=== PATIENT | male | born 1975 | race Two or more races ===

== ENCOUNTER 2023-04-08 12:08 | Inpatient (IN) | payer MEDICAID ==
[~2023-04-08] VITALS: Ht 177.8 cm; Wt 86.6 kg
[2023-04-08 13:31] LABS: Basophils # (auto) 0 10 ^3/uL (0-0.2); Basophils % (auto) 0.3 % (0.0-2.0); Eosinophils # (auto) 0.1 10 ^3/uL (0-0.8); Eosinophils % (auto) 1.2 % (0.0-7.0); Hematocrit 46.7 % (41.0-53.0); Hemoglobin 16.1 g/dL (13.5-17.5); Lymphocytes # (auto) 1.3 10 ^3/uL (0.4-5.4); Lymphocytes % (auto) 19.4 % (10.0-50.0); Mean Corpuscular Hemoglobin 29.9 pg (28.0-32.0); Mean Corpuscular Hgb Conc. 34.5 g/dL (32.0-36.0); Mean Corpuscular Volume 86.9 fL (80.0-100.0); Monocytes # (auto) 0.4 10 ^3/uL (0-1.3); Monocytes % (auto) 6.5 % (0.0-12.0); Neutrophils # (auto) 4.9 10 ^3/uL (1.6-8.6); Neutrophils % (auto) 72.6 % (37.0-80.0); Nucleated Red Blood Cells % 0.2 %; Red Blood Cells 5.38 10^6/uL (4.5-5.90); Red Cell Distribution Width 13.1 % (11.8-14.3); White Blood Cell 6.7 10^3/uL (4.4-10.8)
[2023-04-08 13:56] LABS: Alanine Aminotransferase 24 U/L (7-40); Albumin 4.5 g/dL (3.2-4.8); Alkaline Phosphatase 58 U/L (46-116); Anion Gap 5.8 (5-15); Aspartate Aminotransferase 11 U/L (13-40); BUN/Creatinine Ratio 14.4 (10.0-20.0); Blood Urea Nitrogen 13 mg/dL (9-23); Calcium 9.3 mg/dL (8.5-10.1); Carbon Dioxide 29.2 mmol/L (20-30); Chloride 103 mmol/L (98-107); Glucose 90 mg/dL (74-106); Lipase 42 U/L (12-53); Magnesium 1.9 mg/dL (1.6-2.6); Potassium 4.4 mmol/L (3.5-5.1); Sodium 138 mmol/L (136-145)
[2023-04-08 13:57] LABS: Total Protein 7.7 g/dL (5.7-8.2)
[2023-04-08] MEDS ORDERED: PIPERACILLIN-TAZOB 3.375GM 100 ML IV ONE (14:00)
[2023-04-08] MEDS ORDERED: SODIUM CHLORIDE 0.9% 1,000 ML IV ONE (14:00)
[2023-04-08 14:03] LABS: Urine Bacteria NONE SEEN /hpf (None Seen); Urine Blood Negative /uL (Negative); Urine Clarity Clear (Clear); Urine Color Yellow (Yellow); Urine Mucus FEW (None Seen); Urine Protein, UAD Negative (Negative); Urine Specific Gravity 1.025 (1.001-1.035); Urine Urobilinogen Normal (Negative); Urine WBC 1 /hpf (0 - 3); Urine pH 5.5 (5.0-8.0)
[2023-04-08] MEDS ORDERED: PANTOPRAZOLE 40 MG/10 ML VIAL INJ IV ONE (15:30)
[2023-04-08] MEDS ORDERED: KETOROLAC TROMETH 30 MG/ML 1ML VIAL IV ONE (15:30)
[2023-04-08] MEDS ORDERED: ACETAMINOPHEN 325 MG TAB PO PRN (15:30)
[2023-04-08 16:03] VITALS: PULSE 61; RESP 17; O2SAT 95
[2023-04-08] MEDS: SODIUM CHLORIDE 0.9% 1,000 ML IV SCH (16:36)
[2023-04-08 16:42] LABS: INR 0.97 (0.9-1.15); Prothrombin Time 10.2 sec (9.3-11.8)
[2023-04-08] MEDS: PIPERACILLIN-TAZOB 3.375GM 100 ML IV SCH (18:09)
[2023-04-08 22:30] VITALS: PULSE 56; RESP 17; O2SAT 95
[2023-04-09] MEDS: PIPERACILLIN-TAZOB 3.375GM 100 ML IV SCH ×3 (01:05→17:08)
[2023-04-09] MEDS: SODIUM CHLORIDE 0.9% 1,000 ML IV SCH (03:36)
[2023-04-09 07:40] VITALS: PULSE 56; RESP 16; O2SAT 95
[2023-04-09 08:05] LABS: Basophils # (auto) 0 10 ^3/uL (0-0.2); Basophils % (auto) 0.5 % (0.0-2.0); Eosinophils # (auto) 0.1 10 ^3/uL (0-0.8); Eosinophils % (auto) 2.2 % (0.0-7.0); Hematocrit 44.5 % (41.0-53.0); Hemoglobin 14.8 g/dL (13.5-17.5); Lymphocytes # (auto) 1.2 10 ^3/uL (0.4-5.4); Lymphocytes % (auto) 23.7 % (10.0-50.0); Mean Corpuscular Hemoglobin 29.3 pg (28.0-32.0); Mean Corpuscular Hgb Conc. 33.3 g/dL (32.0-36.0); Mean Corpuscular Volume 88.1 fL (80.0-100.0); Monocytes # (auto) 0.4 10 ^3/uL (0-1.3); Monocytes % (auto) 7.6 % (0.0-12.0); Neutrophils # (auto) 3.3 10 ^3/uL (1.6-8.6); Nucleated Red Blood Cells % 0.2 %; Red Blood Cells 5.05 10^6/uL (4.5-5.90); Red Cell Distribution Width 13.2 % (11.8-14.3)
[2023-04-09 08:41] LABS: Alanine Aminotransferase 15 U/L (7-40); Albumin 3.7 g/dL (3.2-4.8); Alkaline Phosphatase 46 U/L (46-116); Anion Gap 6.9 (5-15); Aspartate Aminotransferase 10 U/L (13-40); Bilirubin, Total 1.3 mg/dL (0.2-1.0); Blood Urea Nitrogen 10 mg/dL (9-23); Calcium 8.9 mg/dL (8.5-10.1); Carbon Dioxide 24.1 mmol/L (20-30); Chloride 108 mmol/L (98-107); Glucose 87 mg/dL (74-106); Potassium 4.2 mmol/L (3.5-5.1); Sodium 139 mmol/L (136-145)
[2023-04-09 08:42] LABS: Total Protein 6.4 g/dL (5.7-8.2)
[2023-04-09] MEDS ORDERED: LIDOCAINE W/ EPINEPHRINE 2% INJ 20ML VIAL ONE (09:31)
[2023-04-09] MEDS ORDERED: BUPIVACAINE 0.25% INJ 50ML VIAL ONE (09:31)
[2023-04-09] MEDS ORDERED: fentaNYL CITRATE 100 MCG/2 ML VL ONE (09:40)
[2023-04-09] MEDS ORDERED: MIDAZOLAM HCL 2MG/2ML 2ml VIAL (1mg/ml) ONE (09:40)
[2023-04-09] MEDS ORDERED: MEPERIDINE HCL (25 MG/ML) 1ML VIAL ONE (09:41)
[2023-04-09] MEDS ORDERED: PROPOFOL 10 MG/ML 20 ML IV ONE (09:42)
[2023-04-09] MEDS ORDERED: DexAMETHasone SOD PHOS 10MG/1ML VIAL INJ ONE (09:42)
[2023-04-09] MEDS ORDERED: ePHEDrine SULFATE 50 MG/ML AMP IV PRN (10:15)
[2023-04-09] MEDS ORDERED: MORPHINE SULFATE 4 MG/ML SYR/VIAL IV PRN (10:15)
[2023-04-09] MEDS ORDERED: MIDAZOLAM HCL 2MG/2ML 2ml VIAL (1mg/ml) IV PRN (10:15)
[2023-04-09] MEDS ORDERED: ONDANSETRON HCL 4 MG/2 ML VIAL IV PRN (10:15)
[2023-04-09] MEDS ORDERED: LABETALOL HCL 5 MG/ML 4ML SYRINGE IV PRN (10:15)
[2023-04-09] MEDS ORDERED: SUGAMMADEX 200mg/2ml Vial (100MG/ML) IV ONE (10:48)
[2023-04-09 11:05] VITALS: O2SAT 99
[2023-04-09] MEDS: HYDROmorphone HCL 2 MG/ML VL/or syr IV PRN ×2 (11:26→11:41)
[2023-04-09] MEDS: D5W/SOD CHL 0.45%/KCL 20MEQ 1,000 ML IV SCH ×2 (11:30→19:29)
[2023-04-09 13:49] VITALS: BP 133/75; PULSE 71; RESP 16; RESP 18; TEMP 97.9; O2SAT 95; O2SAT 96
[2023-04-09] MEDS: PANTOPRAZOLE 40 MG/10 ML VIAL INJ IV SCH (15:21)
[2023-04-09] MEDS: MORPHINE SULFATE INJ 2 MG/ml SYRG IV PRN (15:21)
[2023-04-09 16:55] VITALS: BP 138/78; PULSE 68; RESP 14; TEMP 97.7; O2SAT 94
[2023-04-09] MEDS ORDERED: ONDANSETRON HCL 4 MG/2 ML VIAL IV ONE (17:24)
[2023-04-09] MEDS ORDERED: ROCURONIUM 10MG/ML 10ML VIAL IV ONE (17:24)
[2023-04-09 22:00] VITALS: BP 117/72; PULSE 76; RESP 20; TEMP 98; O2SAT 100
[2023-04-10] MEDS: MORPHINE SULFATE INJ 2 MG/ml SYRG IV PRN ×3 (01:03→15:41)
[2023-04-10] MEDS: D5W/SOD CHL 0.45%/KCL 20MEQ 1,000 ML IV SCH ×2 (03:40→10:47)
[2023-04-10 04:49] VITALS: BP 121/76; PULSE 77; RESP 20; TEMP 98.1; O2SAT 96
[2023-04-10 08:00] VITALS: BP 123/75; PULSE 76; RESP 16; TEMP 98; O2SAT 96
[2023-04-10] MEDS: PANTOPRAZOLE 40 MG/10 ML VIAL INJ IV SCH (09:06)
[2023-04-10 12:00] VITALS: BP 123/75; PULSE 68; RESP 16; TEMP 98.7; O2SAT 95
[2023-04-10] MEDS ORDERED: METR-344 PO (12:40)
[2023-04-10] MEDS ORDERED: TRAM50TA2 PO (12:40)
[2023-04-10] MEDS ORDERED: LEVO500T91 PO (12:40)
[2023-04-10] MEDS ORDERED: DOCU-94 PO (12:40)
[2023-04-10] MEDS: PIPERACILLIN-TAZOB 3.375GM 100 ML IV SCH (13:08)
[2023-04-10 16:00] VITALS: BP 122/81; PULSE 67; RESP 16; TEMP 97.8; O2SAT 95
[2023-04-10 18:49] VITALS: BP 133/72; PULSE 78; RESP 18; TEMP 98; O2SAT 96
== END 2023-04-10 17:25 | disposition home or self-care (01) | DRG 234 ==
LOC: ER 12:08 → OVERFLOW 15:23 → EAST 04-09 14:05
PROVIDERS: ADMIT Nurse Practitioner Family; ATTEND Internal Medicine
PROC: 0DTJ4ZZ Resection of Appendix, Percutaneous Endoscopic Approach (ICD-10-PCS; principal; 2023-04-09 09:55)
DX: K35.891 Other acute appendicitis without perforation, with gangrene (principal); Z83.3 Family history of diabetes mellitus
CPT/HCPCS: 36415; 74176; 80053; 81001; 83690; 83735; 85025; 85610; 85730; 86850; 86900; 86901; 87077; 87186; 87205; 93005; C9113; G0378; J1100; J1885; J2250; J2405; J2543; J2704; J3490

== ENCOUNTER 2023-04-23 08:41 | Emergency (ER) | payer MEDICAID ==
[~2023-04-23] VITALS: Ht 175.3 cm; Wt 83.7 kg
[~2023-04-23 08:41] MED LIST: DOCU-94 PO; LEVO500T91 PO; METR-344 PO; TRAM50TA2 PO
[2023-04-23 09:29] LABS: Basophils # (auto) 0 10 ^3/uL (0-0.2); Basophils % (auto) 0.8 % (0.0-2.0); Eosinophils # (auto) 0.2 10 ^3/uL (0-0.8); Eosinophils % (auto) 3.5 % (0.0-7.0); Hematocrit 48.9 % (41.0-53.0); Hemoglobin 16.5 g/dL (13.5-17.5); Lymphocytes # (auto) 1.4 10 ^3/uL (0.4-5.4); Lymphocytes % (auto) 29.1 % (10.0-50.0); Mean Corpuscular Hgb Conc. 33.6 g/dL (32.0-36.0); Mean Corpuscular Volume 86.3 fL (80.0-100.0); Monocytes # (auto) 0.4 10 ^3/uL (0-1.3); Monocytes % (auto) 7.5 % (0.0-12.0); Neutrophils # (auto) 2.9 10 ^3/uL (1.6-8.6); Neutrophils % (auto) 59.1 % (37.0-80.0); Nucleated Red Blood Cells % 0.2 %; Red Blood Cells 5.67 10^6/uL (4.5-5.90); Red Cell Distribution Width 13.3 % (11.8-14.3); White Blood Cell 4.8 10^3/uL (4.4-10.8)
[2023-04-23 09:36] LABS: Urine Bacteria NONE SEEN /hpf (None Seen); Urine Blood Negative /uL (Negative); Urine Clarity Clear (Clear); Urine Protein, UAD Negative (Negative); Urine Specific Gravity 1.024 (1.001-1.035); Urine Urobilinogen Normal (Negative); Urine WBC 1 /hpf (0 - 3)
[2023-04-23 09:37] LABS: Urine Color STRAW (Yellow)
[2023-04-23 09:47] LABS: Alanine Aminotransferase 68 U/L (7-40); Albumin 4.3 g/dL (3.2-4.8); Alkaline Phosphatase 54 U/L (46-116); Aspartate Aminotransferase 31 U/L (13-40); BUN/Creatinine Ratio 15.2 (10.0-20.0); Blood Urea Nitrogen 15 mg/dL (9-23); Calcium 9.4 mg/dL (8.5-10.1); Carbon Dioxide 30 mmol/L (20-30); Glucose 68 mg/dL (74-106)
[2023-04-23 09:48] LABS: Bilirubin, Total 0.6 mg/dL (0.2-1.0); Total Protein 7.2 g/dL (5.7-8.2)
[2023-04-23 10:34] LABS: Anion Gap 4 (5-15); Chloride 104 mmol/L (98-107); Potassium 4.5 mmol/L (3.5-5.1); Sodium 138 mmol/L (136-145)
[2023-04-23 13:57] VITALS: BP 124/83; PULSE 72; RESP 16; TEMP 97.9; O2SAT 95
== END 2023-04-23 16:42 | disposition home or self-care (01) ==
LOC: ER 08:41
DX: R10.31 Right lower quadrant pain (principal); Z79.899 Other long term (current) drug therapy
CPT/HCPCS: 36415; 74176; 80053; 81001; 83690; 84484; 85025

== ENCOUNTER 2023-06-03 08:15 | Emergency (ER) | payer MEDICAID ==
[~2023-06-03] VITALS: Ht 175.3 cm; Wt 85.2 kg
[2023-06-03 08:33] VITALS: BP 117/67; PULSE 66; RESP 18; TEMP 97.8; O2SAT 97
[2023-06-03] MEDS ORDERED: CYCL-611 PO (09:28)
[2023-06-03] MEDS ORDERED: HYDR-4902 PO (09:28)
[2023-06-03] MEDS ORDERED: HYDROcodone-ACET 5/325MG TAB PO ONE (09:30)
[2023-06-03] MEDS ORDERED: DexAMETHasone SOD PHOS 10MG/1ML VIAL INJ IM ONE (09:30)
[2023-06-03] MEDS ORDERED: KETOROLAC TROMETH 60MG/2ML VIAL IM ONE (09:30)
== END 2023-06-03 09:46 | disposition home or self-care (01) ==
LOC: ER 08:15
DX: G89.29 Other chronic pain (principal); M54.50 Low back pain, unspecified; M51.36 Other intervertebral disc degeneration, lumbar region; Z79.899 Other long term (current) drug therapy; Z79.2 Long term (current) use of antibiotics
CPT/HCPCS: 72131; 96372; 99285; J1100; J1885

== ENCOUNTER 2023-12-22 09:40 | Emergency (ER) | payer MEDICAID ==
[~2023-12-22] VITALS: Ht 175.3 cm; Wt 85.4 kg
[~2023-12-22 09:40] MED LIST changes: +CYCL-611 PO; +HYDR-4902 PO; +IBUP1TAB5 PO
[2023-12-22 10:25] LABS: Urine Bacteria None Seen /hpf (None Seen)
[2023-12-22 10:35] LABS: Basophils # (auto) 0 10 ^3/uL (0-0.2); Basophils % (auto) 0.5 % (0.0-2.0); Eosinophils # (auto) 0.1 10 ^3/uL (0-0.8); Eosinophils % (auto) 2.2 % (0.0-7.0); Hematocrit 47.4 % (41.0-53.0); Hemoglobin 16.1 g/dL (13.5-17.5); Lymphocytes # (auto) 1.4 10 ^3/uL (0.4-5.4); Lymphocytes % (auto) 31.3 % (10.0-50.0); Mean Corpuscular Hemoglobin 29.7 pg (28.0-32.0); Mean Corpuscular Hgb Conc. 33.9 g/dL (32.0-36.0); Mean Corpuscular Volume 87.5 fL (80.0-100.0); Monocytes # (auto) 0.4 10 ^3/uL (0-1.3); Monocytes % (auto) 9.1 % (0.0-12.0); Neutrophils # (auto) 2.5 10 ^3/uL (1.6-8.6); Neutrophils % (auto) 56.9 % (37.0-80.0); Nucleated Red Blood Cells % 0.3 %; Red Blood Cells 5.42 10^6/uL (4.5-5.90); Red Cell Distribution Width 13.4 % (11.8-14.3); White Blood Cell 4.5 10^3/uL (4.4-10.8)
[2023-12-22 10:42] LABS: Chloride 107 mmol/L (98-107); Potassium 4.3 mmol/L (3.5-5.1); Sodium 138 mmol/L (136-145)
[2023-12-22 10:42] LABS: Urine Amorphous Crystal FEW /hpf (None Seen); Urine Blood Negative /uL (Negative); Urine Clarity Clear (Clear); Urine Color Yellow (Yellow); Urine Mucus FEW (None Seen); Urine Protein, UAD Negative (Negative); Urine Specific Gravity 1.033 (1.001-1.035); Urine Urobilinogen Normal (Negative); Urine WBC 1 /hpf (0 - 3); Urine pH 5.5 (5.0-9.0)
[2023-12-22 10:43] LABS: Anion Gap 1 (5-15); Calcium 9.8 mg/dL (8.5-10.1); Carbon Dioxide 30 mmol/L (20-30)
[2023-12-22 10:48] LABS: BUN/Creatinine Ratio 18.1 (10.0-20.0); Blood Urea Nitrogen 19 mg/dL (9-23); Glucose 70 mg/dL (74-106)
[2023-12-22 11:20] VITALS: BP 136/79; PULSE 61; RESP 18; TEMP 98.4; O2SAT 97
== END 2023-12-22 11:28 | disposition home or self-care (01) ==
LOC: ER 09:40
DX: R10.32 Left lower quadrant pain (principal)
CPT/HCPCS: 36415; 74176; 80048; 81001; 85025

== ENCOUNTER 2024-06-11 03:14 | Inpatient (IN) | payer MEDICAID ==
[~2024-06-11] VITALS: Ht 175.3 cm; Wt 81.5 kg
--- NOTE | 2024-06-11 03:49 | ED.PDOC ---
History of Present Illness HPI Comments 48 y/o M, with a Hx of appendectomy and EtOH use, presents with c/o intermittent and non-radiating, left-sided chest pain since 1900, yesterday. Patient is a [place]ian speaker and reports onset of chest pain, initially, while at work that he describes it being "heavy" and "pressure-like" in quality. Patient comments on pain subsiding, temporally, when he slept on his right-side after returning form work and it coming back and awakening him, this morning. Patient comments on having similar pain in the past that were not as severe then and occurring whenever bending over. Patient endorses on no further relevant or pertinent past medical, surgical, or family Hx in addition to recent stress, injuries, sick contact, travel, spoiled food intake, or substance use/exposure. Patient denies having any shortness of breath, palpitations, nausea, vomiting, fever, chills, or other associated symptoms or modifiers at this time. Chief Complaint: Chest Pain Time Seen by MD: 03:30 Primary Care Provider: DENIES Reviewed Notes: Nurses Notes, Medications, Allergies Allergies: Coded Allergies: NO KNOWN ALLERGIES (Unverified , 04/08/23) Home Meds Active Scripts Ibuprofen Micronized (Ibuprofen) 600 Mg Tab, 600 MG PO TIDPRN PRN for 14 Days, #42 TAB 0 Refills Prov:LUCY FIELD APPLICATION INTERNSHIP 09/09/23 Cyclobenzaprine HCl (Cyclobenzaprine Hydrochlo) 10 Mg Tab, 1 TAB PO Q8HR, #15 TAB as needed for muscle spasm do not take with norco Prov:ERNESTINA FERNANDEZ APPLICATION INTERNSHIP 06/03/23 Hydrocodone-Acetaminophen (Hydrocodone Bitartrate/AC 5-325 mg) 1 Tab Tab, 1 TAB PO Q6HR, #10 TAB as needed for pain do not take with flexeril Prov:ERNESTINA FERNANDEZ [employer] INTERNSHIP 06/03/23 Tramadol Hcl (Tramadol Hcl) 50 Mg Tab, 50 MG PO TIDP PRN for 5 Days, #15 TAB Prov:DIANA PELAEZ MD 04/10/23 Docusate Sodium (Colace) 100 Mg Cap, 1 CAP PO BID PRN for 15 Days, #40 CAP Prov:DIANA PELAEZ MD 04/10/23 Metronidazole (Flagyl) 500 Mg Tab, 500 MG PO TID for 7 Days, #21 TAB Prov:DIANA PELAEZ MD 04/10/23 Levofloxacin Hemihydrate (LEVAQUIN 500 MG) 500 Mg Tab, 500 MG PO DAILY for 7 Days, #7 TAB Prov:DIANA PELAEZ MD 04/10/23 Information Source: Patient Mode of Arrival: Ambulatory Severity: Moderate Timing: Hours Duration: Since onset Prehospital treatment: None Past Medical History PAST MEDICAL HISTORY: Denies Surgical History: Appendectomy Family History Family History: Family hx of DM, Family hx of Cancer Social History Smoker: Non-Smoker Alcohol: Occasionally Drugs: Denies Drug Use Lives In: Home Constitutional: denies: chills, diaphoresis, fatigue, fever, malaise, sweats, weakness, others EENTM: denies: blurred vision, double vision, ear bleeding, ear discharge, ear drainage, ear pain, ear ringing, eye pain, eye redness, hearing loss, mouth pain, mouth swelling, nasal discharge, nose bleeding, nose congestion, nose pain, photophobia, tearing, throat pain, throat swelling, voice changes, others Respiratory: denies: cough, hemoptysis, orthopnea, SOB at rest, shortness of breath, SOB with excertion, stridor, wheezing, others Cardiovascular: reports: chest pain; denies: dizzy spells, diaphoresis, Dyspnea on exertion, edema, irregular heart beat, left arm pain, lightheadedness, palpitations, PND, syncope, others Gastrointestinal: denies: abdomen distended, abdominal pain, blood streaked bowels, constipated, diarrhea, dysphagia, difficulty swallowing, hematemesis, melena, nausea, poor appetite, poor fluid intake, rectal bleeding, rectal pain, vomiting, others Genitourinary: denies: burning, dysuria, flank pain, frequency, hematuria, incontinence, penile discharge, penile sore, pain, testicle pain, testicle swelling, urgency, others Neurological: denies: dizziness, fainting, headache, left sided numbness, left sided weakness, numbness, paresthesia, pre-existing deficit, right sided numbness, right sided weakness, seizure, speech problems, tingling, tremors, weakness, others Musculoskeletal: denies: back pain, gout, joint pain, joint swelling, muscle pain, muscle stiffness, neck pain, others Integumetry: denies: bruises, change in color, change in hair/nails, dryness, laceration, lesions, lumps, rash, wounds, others Allergic/Immunocompromised: denies: Difficulty Healing, Frequent Infections, Hives, Itching, others Hematologic/Lymphatic: denies: anemia, blood clots, easy bleeding, easy bruising, swollen glands, others Endocrine: denies: excessive hunger, excessive sweating, excessive thirst, excessive urination, flushing, intolerance to cold, intolerance to heat, unexplained weight gain, unexplained weight loss, others Psychiatric: denies: anxiety, bipolar disorder, depression, hopeless, panic disorder, schizophrenia, sleepless, suicidal, others All Other Systems: Reviewed and Negative Physical Exam General Appearance: No Apparent Distress, Normal HEENT: Normal ENT Inspection, Pharynx Normal, TMs Normal Neck: Full Range of Motion, Non-Tender, Normal, Normal Inspection Respiratory: Chest Non-Tender, Lungs Clear, No Accessory Muscle Use, No Respiratory Distress, Normal Breath Sounds Cardiovascular: No Edema, No JVD, No Murmur, No Gallop, Normal Peripheral Pulses, Regular Rate/Rhythm Breast Exam: Deferred Gastrointestinal: No Organomegaly, Non Tender, No Pulsatile Mass, Normal Bowel Sounds, Soft Genitalia: Deferred Pelvic: Deferred Rectal: Deferred Extremities: No calf tenderness, Normal capillary refill, Normal inspection, Normal range of motion, Non-tender, No pedal edema Musculoskeletal : Apperance: Normal Neurologic: Alert, site auditor II-XII nml as Tested, No Motor Deficits, Normal Affect, Normal Mood, No Sensory Deficits Cerebellar Function: Normal Reflexes: Normal Skin: Dry, Normal Color, Warm Lymphatic: No Adenopathy Was a procedure done? Was a procedure done?: No EKG EKG : Kunkle: Normal Cardiac Rhythm: NSR Block: None Hypertrophy: None ST: Normal Differential Dx Considerations may include: OK, ACS, PE, angina, costochondritis, musculoskeletal pain, gastritis, gastroenteritis, anxiety X-Ray, Labs, Meds, VS Vital Signs Date Time Temp Pulse Resp B/P (MAP) Pulse Ox O2 Delivery O2 Flow Rate FiO2 06/11/24 04:20 59 06/11/24 04:05 61 16 97 Room Air* 0 21 06/11/24 04:05 98.3 61 16 111/76 (88) 97 98.3 06/11/24 03:21 98.2 63 17 155/98 (117) 97 06/11/24 03:20 61 Lab Test 06/11/24 04:30 06/11/24 03:22 Range/Units Troponin I High Sensitivity 3 L 3 L </=54 ng/L White Blood Count 4.8 4.4-10.8 10^3/uL Red Blood Count 5.24 4.5-5.90 10^6/uL Hemoglobin 15.9 13.5-17.5 g/dL Hematocrit 47.3 41.0-53.0 % Mean Corpuscular Volume 90.2 80.0-100.0 fL Mean Corpuscular Hemoglobin 30.3 28.0-32.0 pg Mean Corpuscular Hemoglobin Concent 33.6 32.0-36.0 g/dL Red Cell Distribution Width 13.8 11.8-14.3 % Platelet Count 244 140-450 10^3/uL Mean Platelet Volume 6.8 L 6.9-10.8 fL Neutrophils (%) (Auto) 55.4 37.0-80.0 % Lymphocytes (%) (Auto) 32.5 10.0-50.0 % Monocytes (%) (Auto) 9.0 0.0-12.0 % Eosinophils (%) (Auto) 2.2 0.0-7.0 % Basophils (%) (Auto) 0.9 0.0-2.0 % Neutrophils # (Auto) 2.7 1.6-8.6 10 ^3/uL Lymphocytes # (Auto) 1.6 0.4-5.4 10 ^3/uL Monocytes # (Auto) 0.4 0-1.3 10 ^3/uL Eosinophils # (Auto) 0.1 0-0.8 10 ^3/uL Basophils # (Auto) 0 0-0.2 10 ^3/uL Nucleated Red Blood Cells 0.1 % Sodium Level 138 136-145 mmol/L Potassium Level 5.3 H 3.5-5.1 mmol/L Chloride Level 105 98-107 mmol/L Carbon Dioxide Level 29 20-31 mmol/L Anion Gap 4 L 5-15 Blood Urea Nitrogen 19 9-23 mg/dL Creatinine 1.04 0.700-1.30 mg/dL Glomerular Filtration Rate Calc 89 >90 mL/min BUN/Creatinine Ratio 18.3 10.0-20.0 Serum Glucose 107 H 74-106 mg/dL Calcium Level 9.9 8.7-10.4 mg/dL Current Medications Medications (Trade) Dose Ordered Sig/Christofer Route Start Time Stop Time Status Last Admin Famotidine (Pepcid Tablet) 20 mg ONCE ONCE PO 06/11/24 03:45 06/11/24 03:46 DC 06/11/24 04:10 Al Hydrox/Mg Hydrox/Simethicone (Maalox Plus) 15 ml ONCE ONCE PO 06/11/24 03:45 06/11/24 03:46 DC 06/11/24 04:09 [place] [id number] Ph: [phone] DIAGNOSTIC IMAGING Diagnostic Imaging Report : [id number] Signed PATIENT: ROGELIO MACIEL ACCT: [id number] UNIT: [id number] : 1975 LOC: ER ROOM / BED: / AGE / SEX: 48 / M ADM STATUS: REG ER SERVICE 033 ORDERING PHYSICIAN: GELA CARDONA MD PROCEDURE(s): CXR2 - CHEST TWO VIEWS ROUTINE REASON: chest pain ORDER NUMBER(s): [id number], ACCESSION NUMBER(s): [id number] CHEST TWO VIEWS ROUTINE CLINICAL HISTORY: chest pain COMPARISON: None TECHNIQUE: Frontal and lateral view of the chest was obtained FINDINGS: Lines and Tubes: None Lungs: There is pulmonary congestion. Pleura: No effusion. No pneumothorax. Cardiomediastinal contours: Unremarkable Bones: No acute osseous abnormality. IMPRESSION: 1. Pulmonary congestion. ATED BY: SHAYNA MONROE MD DICTATED DATE/TIME: 06/11/24452 SIGNED BY: SHAYNA MONROE MD SIGNED DATE/TIME: 06/11/24452 CC: Time of 1ST Reevaluation: 04:00 Reevaluation 1ST: Unchanged Patient Education/Counseling: Diagnosis, Treatment Family Education/Counseling: No Family Present Departure 1 Departure Time of Disposition: 05:47 (Patient presented with chest pain that was concerning for possible STEMI, ACS, PE, Pneumonia, Muscle Strain, COPD, Dissection. Data: 1. I ordered and reviewed the result of at least 3 labs including a CBC, BMP, and Troponin. 2. I independently interpreted the following tests: EKG which shows sinus arrhythmia and Chest X-ray which shows vascular congestion.Risk:This patient has a high risk of morbidity due to further diagnostic testing or treatment and may suffer from an acute cardiac or respiratory disorder. Workup reveals concern for ACS and vascular congestion and patient should be admitted for further workup and possible expert consultation. ) Impression: Primary Impression: Acute chest pain Additional Impression: Pulmonary vascular congestion Disposition: ADMITTED INPATIENT Admit to: Med Surg Condition: Serious Critical Care Note Critical Care Time?: Yes Critical care comment: Active chest pain Authorized and Performed by: Gela Cardona MD Total critical care time: Approximately 44 minutes Due to a high probability of clinically significant, life threatening deterioration, the patient required my highest level of preparedness to intervene emergently and I personally spent this critical care time directly and personally managing the patient. This critical care time included obtaining a history; examining the patient; pulse oximetry; ordering and review of studies; arranging urgent treatment with development of a management plan; evaluation of patient's response to treatment; frequent reassessment; and, discussions with other providers. This critical care time was performed to assess and manage the high probability of imminent, life-threatening deterioration that could result in multi-organ failure. It was exclusive of separately billable procedures and treating other patients and teaching time. Please see my other sections and the rest of the note for further information on patient assessment and treatment. Stability Stability form required: No Heart Score Heart Score: Heart Score Response (Comments) Value History Moderate Suspicious 1 EKG Repolarization Disturb 1 Age 45-64 1 Risk Factors No known risk factors 0 Troponin Normal limit 0 Total 3 I personally scribed for GELA CARDONA MD ([email or web address]) on 06/11/24 at 03:49. Electronically submitted by Lucien Farris ([email or web address]). I personally scribed for GELA CARDONA MD ([email or web address]) on 06/11/24 at 05:38. Electronically submitted by Lucien Farris ([email or web address]). GELA CARDONA MD Jun 11, 2024 03:49
[2024-06-11 03:54] LABS: Basophils # (auto) 0 10 ^3/uL (0-0.2); Basophils % (auto) 0.9 % (0.0-2.0); Eosinophils # (auto) 0.1 10 ^3/uL (0-0.8); Eosinophils % (auto) 2.2 % (0.0-7.0); Hematocrit 47.3 % (41.0-53.0); Hemoglobin 15.9 g/dL (13.5-17.5); Lymphocytes # (auto) 1.6 10 ^3/uL (0.4-5.4); Lymphocytes % (auto) 32.5 % (10.0-50.0); Mean Corpuscular Hemoglobin 30.3 pg (28.0-32.0); Mean Corpuscular Hgb Conc. 33.6 g/dL (32.0-36.0); Mean Corpuscular Volume 90.2 fL (80.0-100.0); Monocytes # (auto) 0.4 10 ^3/uL (0-1.3); Neutrophils # (auto) 2.7 10 ^3/uL (1.6-8.6); Neutrophils % (auto) 55.4 % (37.0-80.0); Nucleated Red Blood Cells % 0.1 %; Platelet Count (auto) 244 10^3/uL (140-450); Red Blood Cells 5.24 10^6/uL (4.5-5.90); Red Cell Distribution Width 13.8 % (11.8-14.3); White Blood Cell 4.8 10^3/uL (4.4-10.8)
[2024-06-11 03:56] LABS: Chloride 105 mmol/L (98-107); Potassium 5.3 mmol/L (3.5-5.1); Sodium 138 mmol/L (136-145)
[2024-06-11 03:57] LABS: Anion Gap 4 (5-15); Calcium 9.9 mg/dL (8.7-10.4); Carbon Dioxide 29 mmol/L (20-31)
[2024-06-11 04:02] LABS: BUN/Creatinine Ratio 18.3 (10.0-20.0); Blood Urea Nitrogen 19 mg/dL (9-23); Glucose 107 mg/dL (74-106)
[2024-06-11 04:05] VITALS: PULSE 61; RESP 16; O2SAT 97
[2024-06-11] MEDS: MAALOX PLUS or MAALOX 30 ML PO ONE (04:09)
[2024-06-11] MEDS: FAMOTIDINE 20 MG TAB PO ONE (04:10)
--- NOTE | 2024-06-11 04:56 | DVH ---
XY CHEST TWO VIEWS ROUTINE CLINICAL HISTORY: chest pain COMPARISON: None TECHNIQUE: Frontal and lateral view of the chest was obtained FINDINGS: Lines and Tubes: None Lungs: There is pulmonary congestion. Pleura: No effusion. No pneumothorax. Cardiomediastinal contours: Unremarkable Bones: No acute osseous abnormality. IMPRESSION: 1. Pulmonary congestion.
--- NOTE | 2024-06-11 06:13 | ECG ---
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
--- NOTE | 2024-06-11 06:14 | ECG ---
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
--- NOTE | 2024-06-11 06:21 | ECG ---
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
[2024-06-11 07:30] VITALS: PULSE 57; RESP 57; O2SAT 97
[2024-06-11] MEDS ORDERED: NITROGLYCERIN 0.4 MG SL TAB SL PRN (08:30)
[2024-06-11] MEDS ORDERED: HYDROcodone-ACET 5/325MG TAB PO PRN (08:30)
[2024-06-11] MEDS ORDERED: MORPHINE SULFATE INJ 2 MG/ml SYRG IV PRN (08:30)
[2024-06-11] MEDS ORDERED: ONDANSETRON HCL 4 MG/2 ML VIAL IV PRN (08:30)
[2024-06-11] MEDS ORDERED: ACETAMINOPHEN 325 MG TAB PO PRN (08:30)
--- NOTE | 2024-06-11 09:58 | DVHINCON2 ---
Date Seen: Jun 11, 2024 Referring Physician URIEL Lowery Reason for Consultation Chest pain History of Present Illness This is a [place]-speaking mostly 48-year-old male who presented to the emergency room with a chief complaint of chest pain since 1900 yesterday. Describes his chest pain as left-sided, intermittent, squeezing like, unprovoked, nonradiating, and associated with PND. Given worsening of symptoms he presented to the emergency room for further evaluation. He underwent multiple 12 lead electrocardiogram revealing a sinus bradycardia rhythm with nonprogressive ST depression to lead III. Serial troponin levels are negative. Denies palpitations, diaphoresis, or syncopal events. 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 Denie s any chest wall trauma. Only reports a medical history of borderline dyslipidemia managed by diet and exercise. Past Medical History Past medical history reviewed. No other significant than mentioned above. Past Surgical History Appendectomy Family History: Diabetes mellitus G8 FATHER Hypertension G8 FATHER Family History Family history reviewed. Father with hypertension. Social History Denies the use of illicit drugs, alcohol, or tobacco use. Reports a history of cannabinoid and alcohol use. Allergies: Coded Allergies: NO KNOWN ALLERGIES (Unverified , 04/08/23) Home Meds Active Scripts Ibuprofen Micronized (Ibuprofen) 600 Mg Tab, 600 MG PO TIDPRN PRN for 14 Days, #42 TAB 0 Refills Prov:LUCY FIELD MANUFACTURING MACHINE OPERATOR 09/09/23 Cyclobenzaprine HCl (Cyclobenzaprine Hydrochlo) 10 Mg Tab, 1 TAB PO Q8HR, #15 TAB as needed for muscle spasm do not take with norco Prov:ERNESTINA FERNANDEZ MANUFACTURING MACHINE OPERATOR 06/03/23 Hydrocodone-Acetaminophen (Hydrocodone Bitartrate/AC 5-325 mg) 1 Tab Tab, 1 TAB PO Q6HR, #10 TAB as needed for pain do not take with flexeril Prov:ERNESTINA FERNANDEZ MANUFACTURING MACHINE OPERATOR 06/03/23 Tramadol Hcl (Tramadol Hcl) 50 Mg Tab, 50 MG PO TIDP PRN for 5 Days, #15 TAB Prov:DIANA PELAEZ MD 04/10/23 Docusate Sodium (Colace) 100 Mg Cap, 1 CAP PO BID PRN for 15 Days, #40 CAP Prov:DIANA PELAEZ MD 04/10/23 Metronidazole (Flagyl) 500 Mg Tab, 500 MG PO TID for 7 Days, #21 TAB Prov:DIANA PELAEZ MD 04/10/23 Levofloxacin Hemihydrate (LEVAQUIN 500 MG) 500 Mg Tab, 500 MG PO DAILY for 7 Days, #7 TAB Prov:DIANA PELAEZ MD 04/10/23 Home Meds Denies any home medications. Current Medications Current Medications Medications (Trade) Dose Ordered Sig/Christofer Route PRN Reason Start Time Stop Time Status Last Admin Acetaminophen (Tylenol Tablet) 650 mg Q6HP PRN PO PAIN SCALE 1-3 OR TEMP>100.4 06/11/24 08:30 Acetaminophen/ Hydrocodone Bitart ([place] 5/325MG Tab) 1 tab Q4HP PRN PO MODERATE PAIN (4-6 PAIN SCALE) 06/11/24 08:30 Ondansetron HCl (Zofran) 4 mg Q4HP PRN IV NAUSEA / VOMITING 06/11/24 08:30 Nitroglycerin (Ntrostat Sublingual) 0.4 mg Q5MINP PRN SL FOR CHEST PAIN 06/11/24 08:30 Morphine Sulfate 2 mg Q30M PRN IV FOR CHEST PAIN 06/11/24 08:30 Review of Systems Constitutional: No symptom reported Ears, Nose, & Throat: No symptom reported Eyes: No symptom reported Neurological: No symptoms reported Pulmonary/Respiratory: PND Cardiovascular: Chest pain Gastrointestinal: No symptom reported Genitourinary: No symptom reported Musculoskeletal: No symptom reported Skin: No symptom reported Psychiatric: No symptom reported Endocrine: No symptom reported Hemotologic/Lymphatic: No symptom reported Vital Signs Vital Signs Date Time Temp Pulse Resp B/P (MAP) Pulse Ox O2 Delivery O2 Flow Rate FiO2 06/11/24 08:00 67 06/11/24 07:30 57 97 Room Air* 0 21 06/11/24 07:30 98.2 105/73 (84) 98.2 Physical Exam General Appearance: Cooperative. Well developed. Well nourished. In no acute distress Head Exam: Normal inspection Neck Exam: Normal inspection. Non-tender. Normal alignment Pulmonary/Respiratory: Chest non-tender. Diminished bilateral breath sounds Cardiovascular/Chest: Regular rate and rhythm. S1, S2. Sinus bradycardia with ST segment depression to single lead III. No murmurs. No JVD. Peripheral Pulses: 2+ Radial (R). 2+ Radial (L). 2+ Pedal (R). 2+ Pedal (L) Abdominal Exam: Normal bowel sounds. Soft. Nontender. No hepatospenomegaly. No masses Ankle Exam: Negative ankle edema Lower extremities: Negative lower extremity edema Neuro/Mental Status: A&O x4. Coherent Thoughts/Psych: Normal thought pattern. Appropriate mood and affect. Good judgement and insight Appearance: In no acute distress Skin Exam: Normal inspection. Normal color. Warm. Dry Labs/Diagnostic Data Labs Test 06/11/24 09:07 06/11/24 04:30 06/11/24 03:22 Range/Units Troponin I High Sensitivity 3 L </=54 ng/L White Blood Count 4.8 4.4-10.8 10^3/uL Red Blood Count 5.24 4.5-5.90 10^6/uL Hemoglobin 15.9 13.5-17.5 g/dL Hematocrit 47.3 41.0-53.0 % Mean Corpuscular Volume 90.2 80.0-100.0 fL Mean Corpuscular Hemoglobin 30.3 28.0-32.0 pg Mean Corpuscular Hemoglobin Concent 33.6 32.0-36.0 g/dL Red Cell Distribution Width 13.8 11.8-14.3 % Platelet Count 244 140-450 10^3/uL Mean Platelet Volume 6.8 L 6.9-10.8 fL Neutrophils (%) (Auto) 55.4 37.0-80.0 % Lymphocytes (%) (Auto) 32.5 10.0-50.0 % Monocytes (%) (Auto) 9.0 0.0-12.0 % Eosinophils (%) (Auto) 2.2 0.0-7.0 % Basophils (%) (Auto) 0.9 0.0-2.0 % Neutrophils # (Auto) 2.7 1.6-8.6 10 ^3/uL Lymphocytes # (Auto) 1.6 0.4-5.4 10 ^3/uL Monocytes # (Auto) 0.4 0-1.3 10 ^3/uL Eosinophils # (Auto) 0.1 0-0.8 10 ^3/uL Basophils # (Auto) 0 0-0.2 10 ^3/uL Nucleated Red Blood Cells 0.1 % Sodium Level 138 136-145 mmol/L Chloride Level 105 98-107 mmol/L Carbon Dioxide Level 29 20-31 mmol/L Anion Gap 4 L 5-15 Blood Urea Nitrogen 19 9-23 mg/dL Creatinine 1.04 0.700-1.30 mg/dL Glomerular Filtration Rate Calc 89 >90 mL/min BUN/Creatinine Ratio 18.3 10.0-20.0 Serum Glucose 107 H 74-106 mg/dL Calcium Level 9.9 8.7-10.4 mg/dL Assessment Chest pain rule out coronary artery disease Rule out structural heart disease Sinus bradycardia Borderline dyslipidemia Acute hyperkalemia Plan/Recommendation (Dr. Shipley) The patient presents with chest pain and associated pulmonary vascular congestion. We will continue further cardiac evaluation with a transthoracic echocardiogram to rule out structural heart disease as well as a treadmill stress test to rule out coronary ischemia. Initiate preload reduction. BNP lev el pending at this time. Monitor ECG changes and notify. Thank you for allowing us to participate in this patient's care. Please call if you have any questions or concerns. This medical document was created using an electronic medical record system with voice recognition software and computerized dictation system. Although this document has been carefully reviewed, there might still be some phonetic and typographical errors. Occasional wrong-word or ``sound-alike substitutions may have occurred due to the inherent limitations of voice recognition software. These areas are purely typographical due to imperfections of the software programs and do not reflect any compromise in the patient's medical care. Please read the chart carefully and recognize, using context, where these substitutions have occurred. Plan discussed with: Patient, Other Date of Service: Jun 11, 2024 Billing Provider: HANNA SHIPLEY MD Cardiology Common Codes: [id number] INP/OBS CARE (High) DAWNCOLLEEN JO [facility] Jun 11, 2024 09:58
[2024-06-11 10:02] LABS: Urine Bacteria None Seen /hpf (None Seen)
[2024-06-11 10:04] LABS: Potassium 4.2 mmol/L (3.5-5.1)
--- NOTE | 2024-06-11 10:07 | DVHHP2 ---
History of Present Illness Reason for Visit: CHEST PAIN History of Present Illness 47-year-old male, presented to the ED with complaint of intermittent and nonradiating left-sided chest pain since yesterday at 7:00 p.m. 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 Patient states the pain subsided temporarily when he slept on his right side after returning from work, and upon waking he felt the pain come back. Patient has had similar pain in the past though not as severe and happening when he bends over. Patient does not endorse any cardiac history. Patient's chest x-ray was noted to show pulmonary congestion. Patient's potassium is 5.3. Serial troponins were negative. Cardiology consult placed. Waiting on repeat labs. Patient denies headache, dizziness, diaphoresis, shortness of breath, abdominal pain, no nausea, vomiting, fever, or chills endorsed by the patient. Patient was admitted for further evaluation medical management. Past Medical History Patient denies Past Surgical History Appendectomy Family History Reviewed noncontributory to the management of this case Smoke: No ALCOHOL: none Drugs: None Lives: with Family Review of Systems Constitutional: No: Fever, Chills, Sweats, Weakness, Malaise, Other Eyes: No: Pain, Vision change, Conjunctivae inflammation, Eyelid inflammation, Other, Redness ENT: No: Ear pain, Ear discharge, Nose pain, Nose discharge, Nose congestion, Mouth pain, Mouth swelling, Throat pain, Throat swelling, Other Respiratory: No: Cough, Dry, Shortness of breath, SOB with excertion, Wheezing, Hemoptysis, Pleuritic Pain, Sputum, Wheezing, Other Cardiovascular: Chest Pain (Described as heaviness); No: Palpitations, Orthopnea, Paroxysmal Noc. Dyspnea, Edema, Lt Headedness, Other Gastrointestinal: No: Nausea, Vomiting, Abdominal Pain, Diarrhea, Constipation, Melena, Hematochezia, Other Genitourinary: No Dysuria, No Frequency, No Incontinence, No Hematuria, No Retention, No Other Musculoskeletal: No: other, neck pain, shoulder pain, arm pain, back pain, hand pain, leg pain, foot pain Skin: No: Rash, Lesions, Jaundice, Bruising, Other Neurological: No: Weakness, Numbness, Incoordination, Change in speech, Confusion, Seizures, Other Allergies: Coded Allergies: NO KNOWN ALLERGIES (Unverified , 04/08/23) Medications Current Medications Medications Dose Ordered Sig/Christofre Route Start Time Stop Time Status Last Admin Dose Admin Acetaminophen 650 mg Q6HP PRN PO 06/11/24 08:30 Acetaminophen/ Hydrocodone Bitart 1 tab Q4HP PRN PO 06/11/24 08:30 Ondansetron HCl 4 mg Q4HP PRN IV 06/11/24 08:30 Nitroglycerin 0.4 mg Q5MINP PRN SL 06/11/24 08:30 Morphine Sulfate 2 mg Q30M PRN IV 06/11/24 08:30 Exam Vital Signs Vital Signs Date Time Temp Pulse Resp B/P (MAP) Pulse Ox O2 Delivery O2 Flow Rate FiO2 06/11/24 08:00 67 06/11/24 07:30 57 97 Room Air* 0 21 06/11/24 07:30 98.2 105/73 (84) 98.2 General Appearance: Alert, Oriented X3, Cooperative, No acute distress HEENT: Atraumatic, PERRLA, EOMI, Mucous membr. moist/pink Respiratory: Clear to auscultation, Normal air movement Cardiovascular: Regular rate, Normal S1, Normal S2, No murmurs Abdominal: Normal bowel sounds, Soft, No tenderness, No hepatospenomegaly, No masses Extremities: No clubbing, No cyanosis, No edema, Normal pulses, No tenderness/swelling Skin: No rashes, No breakdown, No significant lesion Neuro: Normal gait, Normal speech, Strength at 5/5 X4 ext, Normal tone, Sensation intact, Cranial nerves 3-12 NL, Reflexes 2+ Psych/Mental Status: Mental status NL, Mood NL Labs/Xrays Labs, imaging, diagnostic tests and ED notes reviewed Labs Test 06/11/24 04:30 06/11/24 03:22 Range/Units Troponin I High Sensitivity 3 L </=54 ng/L White Blood Count 4.8 4.4-10.8 10^3/uL Red Blood Count 5.24 4.5-5.90 10^6/uL Hemoglobin 15.9 13.5-17.5 g/dL Hematocrit 47.3 41.0-53.0 % Mean Corpuscular Volume 90.2 80.0-100.0 fL Mean Corpuscular Hemoglobin 30.3 28.0-32.0 pg Mean Corpuscular Hemoglobin Concent 33.6 32.0-36.0 g/dL Red Cell Distribution Width 13.8 11.8-14.3 % Platelet Count 244 140-450 10^3/uL Mean Platelet Volume 6.8 L 6.9-10.8 fL Neutrophils (%) (Auto) 55.4 37.0-80.0 % Lymphocytes (%) (Auto) 32.5 10.0-50.0 % Monocytes (%) (Auto) 9.0 0.0-12.0 % Eosinophils (%) (Auto) 2.2 0.0-7.0 % Basophils (%) (Auto) 0.9 0.0-2.0 % Neutrophils # (Auto) 2.7 1.6-8.6 10 ^3/uL Lymphocytes # (Auto) 1.6 0.4-5.4 10 ^3/uL Monocytes # (Auto) 0.4 0-1.3 10 ^3/uL Eosinophils # (Auto) 0.1 0-0.8 10 ^3/uL Basophils # (Auto) 0 0-0.2 10 ^3/uL Nucleated Red Blood Cells 0.1 % Sodium Level 138 136-145 mmol/L Potassium Level 5.3 H 3.5-5.1 mmol/L Chloride Level 105 98-107 mmol/L Carbon Dioxide Level 29 20-31 mmol/L Anion Gap 4 L 5-15 Blood Urea Nitrogen 19 9-23 mg/dL Creatinine 1.04 0.700-1.30 mg/dL Glomerular Filtration Rate Calc 89 >90 mL/min BUN/Creatinine Ratio 18.3 10.0-20.0 Serum Glucose 107 H 74-106 mg/dL Calcium Level 9.9 8.7-10.4 mg/dL Assessment/Plan Assessment/Plan Chest pain, rule out ACS Admit to telemetry ACS protocol Cardiology consult Reviewed serial troponin unremarkable EKG sinus Zana some ST depression in lead 3 O2 p.r.n. 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 08:26 Up Ad Tresa GEORGINA 06/11/24 In Process 08:26 Acetaminophen Tablet PHA 06/11/24 In Process (Tylenol Tablet) 08:30 Notify Md Of Changes [facility] 06/11/24 In Process From Base 08:26 Advance Directive [facility] 06/11/24 In Process 08:26 Basic Metabolic Panel LAB 06/12/24 Verified 04:00 Complete Blood Count LAB 06/12/24 Verified 04:00 Patient Condition ORDERS 06/11/24 Transmitted 08:26 Allergies GEORGINA 06/11/24 In Process 08:26 Hydrocodone-Acet PHA 06/11/24 In Process 5/325mg Tab ([place] 08:30 Ondansetron Hcl PHA 06/11/24 In Process (Zofran) 08:30 Nitroglycerin PHA 06/11/24 In Process Sublingual (Ntrostat 08:30 Morphine Sulfate PHA 06/11/24 In Process Injection 08:30 Stat Ekg For Chest [facility] 06/11/24 In Process Pain 08:26 Notify Of Changes [facility] 06/11/24 In Process From Base 08:26 Customer Support Advisor For [facility] 06/11/24 In Process 24 Hours 08:26 Emergency Dysrhythmia [facility] 06/11/24 In Process Protocol 08:26 Rhythm Strips Once [facility] 06/11/24 In Process Every Shift 08:26 Oxygen By Nasal RT 06/11/24 Transmitted Cannula 08:26 * Cardiology Consult CONS 06/11/24 Transmitted 08:26 Cardiac DIET 06/11/24 Transmitted Diet-2gna,Lofat,Lochol Breakfast Hemoglobin A1c LAB 06/11/24 In Process 08:31 Potassium LAB 06/11/24 Logged 08:31 Magnesium LAB 06/11/24 Logged 08:31 Urinalysis LAB 06/11/24 Logged 08:34 Date of Service: Jun 11, 2024 Billing Provider: FABIÁN LAWSON Common Visit Codes: [id number] INP/OBS CARE (HIGH) FABIÁN LAWSON Jun 11, 2024 10:07
[2024-06-11 10:13] LABS: Urine Blood Negative /uL (Negative); Urine Clarity Clear (Clear); Urine Color Light-Yellow (Yellow); Urine Mucus FEW (None Seen); Urine Protein, UAD Negative (Negative); Urine Specific Gravity 1.025 (1.001-1.035); Urine Urobilinogen Normal (Negative); Urine WBC 1 /hpf (0 - 3); Urine pH 5.5 (5.0-9.0)
[2024-06-11 10:17] LABS: Triglycerides 62 mg/dL (< 150)
[2024-06-11 10:18] LABS: LDL Cholesterol 83 mg/dL (< 100)
[2024-06-11 10:19] LABS: Cholesterol 158 mg/dL (< 200); HDL Cholesterol 63 mg/dL (40-59)
[2024-06-11] MEDS: FUROSEMIDE 20 MG/2 ML VIAL IV ONE (10:22)
[2024-06-11 10:27] LABS: Amphetamine Screen, Urine Neg (NEGATIVE); Barbiturate Scree,Urine Neg (NEGATIVE); Benzodiazephine Screen, Urine Neg (NEGATIVE)
[2024-06-11 10:28] LABS: Cannabinoid Screen, Urine Neg (NEGATIVE); Cocaine Screen, Urine Neg (NEGATIVE); Opiate Scree,Urine Neg (NEGATIVE); Phencyclidine Screen, Urine Neg (NEGATIVE)
[2024-06-11 11:07] VITALS: BP 133/83; PULSE 64; RESP 16
--- NOTE | 2024-06-11 12:05 | DVHCARD ---
Cardiology Stress Test [place] Treadmill Stress Test [place] Referring MD: URIEL Dawn Protocol: Mac (without cardiolite) Reason for referral: Chest Pain Target heart Rate:@85%: 137 Percent MPHR: 173 METS: 10.4 Resting Heart rate: 62 Resting Blood Pressure: 133/83 Exercise Heart Rate: 115 Exercise Blood Pressure: 133/83 Reason for Termination of Test: Completion of Protocol Baseline EKG: NSR with ST segment depression to lead III Stress EKG: Sinus tachycardia with ST segment depression to lead III, non- progress Functional Capacity: Good Normal Heart Rate Response: Adequate Blood Pressure Response: Normal Clinical response: Non-ischemic Arrhythmia?: No Cardiolite Injected?: No ST-T Changes: Non/Minimal Probability of Inducible Ische: Low Comments: Uneventful Mac protocol. Optimal functional capacity Date of Service: Jun 11, 2024 Billing Provider: HANNA SHIPLEY MD Cardiology Common Codes: PROCEDURE ONLY Treadmill w/o Cardiolite: [id number], INTERP, RPT COLLEEN DAWN Jun 11, 2024 12:05
[2024-06-11 16:29] VITALS: BP 106/59; PULSE 52; RESP 18; TEMP 97.9; O2SAT 95
--- NOTE | 2024-06-11 18:36 | DVHSR ---
APPROVED REPORT EXAM: Two-dimensional and M-mode echocardiogram with Doppler and color Doppler. Blood Pressure: 112/70 mmHg INDICATION Chest Pain RISK FACTORS Height: 69, Weight: 180 DIMENSIONS LVDd4.7 (3.8-5.7cm)LA (2D)3.4 (1.9-4.0cm)Aortic Root3.7 (2.0-3.7cm) LVDs3.0 (2.5-4.0cm)LA (MM) (1.9-4.0cm)Aortic Cusp Exc2.3 (1.5-2.0cm) EF (%) 65.0 (55-70%)Rt. Atrium4.3 (1.9-4.0cm)Asc. Aorta cm IVSd1.2 (0.7-1.1cm)RV (D) (1.8-2.4cm) PWd1.3 (0.7-1.1cm) Mitral Valve MitralMitral Stenosis E wave0.42m/sMV Mean GR.mmHg A wave0.47m/sMV Peak GR.mmHg E/A ratio0.92D MVAcm2 DECEL [id number] 1/2 [id number] IVRTmsDop MVA3.21cm2 Aortic Valve Aortic ValveAortic Stenosis V10.77m/Sky Mean GR.2mmHg V20.93m/Sky Peak GR.3mmHg LVOT Diameter2.4 (1.8-2.4cm)Doppler AVA3.74cm2 Pulmonic Valve V20.76m/s Conclusion Normal left ventricular size and dimension. Normal left ventricular systolic function with estimated ejection fraction 55%. There is a grade 1 diastolic dysfunction. Normal right ventricular size and dimension. Normal right ventricular systolic function. Normal biatrial size and dimension. Normal aortic valve structure and function. Normal mitral valve structure and function. Normal tricuspid valve structure and function. The pulmonary valve is grossly normal. No pericardial effusion.
[2024-06-11 19:50] LABS: COVID19 ANTIGEN SOFIA FIA NEGATIVE (NEGATIVE); Rapid Influenza A Negative (Negative); Rapid Influenza B Negative (Negative)
[2024-06-11 20:00] VITALS: PULSE 62
[2024-06-11 21:00] VITALS: BP 112/62; PULSE 52; RESP 18; TEMP 98.8; O2SAT 96
[2024-06-12] VITALS (8 sets, daily range): BP systolic 97–121; BP diastolic 60–78; PULSE 53–65; RESP 16–20; TEMP 97.5–98.8; O2SAT 95–100
[2024-06-12 06:41] LABS: Basophils # (auto) 0 10 ^3/uL (0-0.2); Basophils % (auto) 0.4 % (0.0-2.0); Eosinophils # (auto) 0.1 10 ^3/uL (0-0.8); Eosinophils % (auto) 1.7 % (0.0-7.0); Hematocrit 50.9 % (41.0-53.0); Hemoglobin 17.4 g/dL (13.5-17.5); Lymphocytes # (auto) 1.6 10 ^3/uL (0.4-5.4); Lymphocytes % (auto) 30.9 % (10.0-50.0); Mean Corpuscular Hemoglobin 30.9 pg (28.0-32.0); Mean Corpuscular Hgb Conc. 34.3 g/dL (32.0-36.0); Mean Corpuscular Volume 90.1 fL (80.0-100.0); Monocytes # (auto) 0.4 10 ^3/uL (0-1.3); Monocytes % (auto) 8.6 % (0.0-12.0); Neutrophils # (auto) 2.9 10 ^3/uL (1.6-8.6); Neutrophils % (auto) 58.4 % (37.0-80.0); Nucleated Red Blood Cells % 0.6 %; Platelet Count (auto) 235 10^3/uL (140-450); Red Blood Cells 5.65 10^6/uL (4.5-5.90); Red Cell Distribution Width 13.5 % (11.8-14.3)
[2024-06-12 06:45] LABS: Calcium 10.3 mg/dL (8.7-10.4); Chloride 102 mmol/L (98-107); Sodium 137 mmol/L (136-145)
[2024-06-12 06:46] LABS: Anion Gap 5 (5-15); Carbon Dioxide 30 mmol/L (20-31)
[2024-06-12 06:51] LABS: BUN/Creatinine Ratio 13.2 (10.0-20.0); Blood Urea Nitrogen 14 mg/dL (9-23); Glucose 94 mg/dL (74-106)
--- NOTE | 2024-06-12 09:21 | DVH ---
CHEST RADIOGRAPH Indication:Pulmonary congestion Technique: Single frontal view of the chest was obtained Comparison: None FINDINGS: Lines and Tubes: None Lungs: No focal consolidation. Pleura: No effusion. No pneumothorax. Cardiomediastinal contours: Unremarkable Bones: No acute osseous abnormality. IMPRESSION: No acute cardiopulmonary disease.
--- NOTE | 2024-06-12 09:42 | DVHPN2 ---
Subjective Still complaining of chest pain radiating mainly to the left shoulder; nursing staff helped with translation from [place] Reviewed: Care Plan, H&P, Labs, Medications, Previous Orders, Radiology, Other (Consultation) Changes from previous H/P or p: No Changes Objective Vitals Vital Signs Date Time Temp Pulse Resp B/P (MAP) Pulse Ox O2 Delivery O2 Flow Rate FiO2 06/12/24 05:00 98.6 65 20 121/78 (92) 96 98.6 06/11/24 20:00 Room Air* 0 21 Intake/Output Intake and Output 06/12/24 07:00 Intake Total 0 ml Output Total 925 ml Balance -925 ml Intake Oral 0 ml Output Urine Total 925 ml # Voids 2 General Appearance: Alert, Oriented X3, Cooperative, No acute distress HEENT: Atraumatic Lungs: Clear to auscultation, Normal air movement Chest/Breasts: Other (Mild tenderness all over especially on the left side) Cardiovascular: Regular rate, Normal S1, Normal S2, Other (Bradycardic) Abdomen: Normal bowel sounds, Soft, No tenderness Musculoskeletal: Other (Mild tenderness of the shoulders especially the left) Extremities: No edema Neuro: Normal speech, Cranial nerves 3-12 NL Psych/Mental Status: Mental status NL, Mood NL Medications Current Medications Medications Dose Ordered Sig/Christofer Route Start Time Stop Time Status Last Admin Dose Admin Acetaminophen 650 mg Q6HP PRN PO 06/11/24 08:30 Acetaminophen/ Hydrocodone Bitart 1 tab Q4HP PRN PO 06/11/24 08:30 Ondansetron HCl 4 mg Q4HP PRN IV 06/11/24 08:30 Nitroglycerin 0.4 mg Q5MINP PRN SL 06/11/24 08:30 Morphine Sulfate 2 mg Q30M PRN IV 06/11/24 08:30 Laboratory Results Laboratory Tests 06/12/24 05:05 Chemistry Test 06/12/24 05:05 Calcium Level 10.3 mg/dL (8.7-10.4) Urinalysis Test 06/11/24 09:10 Urine Color Light-yellow (Yellow) Urine Clarity Clear (Clear) Urine pH 5.5 (5.0-9.0) Urine Specific [place] 1.025 (1.001-1.035) Urine Protein Negative (Negative) Urine Ketones Negative (Negative) Urine Blood Negative /uL (Negative) Urine Nitrite Negative (Negative) Urine Bilirubin Negative (Negative) Urine Urobilinogen Normal mg/dL (Negative) Urine Leukocyte Esterase Negative /uL (Negative) Urine RBC 1 /hpf (0 - 3) Urine WBC 1 /hpf (0 - 3) Urine Squamous Epithelial Cells None seen /hpf (<5) Urine Bacteria None seen /hpf (None Seen) Urine Mucus Few (None Seen) Urine Glucose Normal mg/dL (Normal) Labs and/or images reviewed: Labs reviewed by me, Image(s) reviewed by me Assessment/Plan Assessment/Plan A 48-year-old male patient; with no known past medical history; presented to the emergency department with chest pain. #Chest pain; ACS ruled out; unknown etiology; associated with shoulders pain #Bradycardia; unknown etiology #Grade 1 diastolic dysfunction Reviewed lab results (including drug screen, A1c, lipid profile), echocardiogram, chest x-rays, and chest angiogram: and stress test Ordered x-rays of the shoulders Cardiology evaluated the patient and signed off Continue pain management as indicated Telemetry Continue monitoring #Hyperkalemia; most likely to suspected rhabdomyolysis; resolved #Suspected BINH due to suspected rhabdomyolysis Ordered CK Started IV fluids Avoid nephrotoxic agents Continue monitoring Goals of care discussed for 20 minutes; full code Late Entry This medical document was created using an electronic medical record system with computerized dictation system. Although this document has been carefully reviewed, there might still be some phonetic and typographical errors. These areas are purely typographical due to imperfections of the software programs, and do not reflect any compromise in the patient's medical care. Plan discussed with: Patient, Other (Nurse) Date of Service: Jun 12, 2024 Billing Provider: HERNANDEZ PORRAS MD Common Visit Codes: [id number] INP/OBS CARE(HIGH) Secondary Visit Codes: [id number] CARE PLAN 30 MINUTES (20 minutes) HERNANDEZ PORRAS MD Jun 12, 2024 09:42
--- NOTE | 2024-06-12 12:34 | DVH ---
CTA CHEST INDICATION: r/o pulmonary embolism TECHNIQUE: Multidetector CTA of the chest was performed of the chest with 100 cc of intravenous contr ast. PULMONARY ANGIOGRAPHY PROTOCOL was utilized using a bolus-tracking technique centered on the geovanny n pulmonary artery. Axial, coronal and sagittal multiplanar and MIP reformats were performed. Radiation Dose Information: CT Dose: CTDI volume is 19 mGy. Dose-length product is 622 mGy*cm The dose indicators for CT are the volume Computed Tomography (CT) Dose Index (CTDIvol) and the Dose Length Product (DLP), and are measured in units of mGy and mGy-cm, respectively. These indicators are not patient dose, but values generated from the CT scanner acquisition factors. The report includes radiation exposure data for exposures received during this examination. Comparison: Chest x-ray 06/12/2024 Findings: Pulmonary artery: There is no evidence of a pulmonary arterial filling defect to suggest pulmonary e mbolism. The main pulmonary artery demonstrates normal caliber. Lungs: No focal consolidation, pulmonary mass, or suspicious pulmonary nodule. The central airways ar e clear. Heart/Vascular Structures: Normal heart size. The thoracic aorta demonstrates normal caliber. There is no evidence of pericardial effusion. Lymph Nodes: There is no evidence of mediastinal, hilar or axillary lymphadenopathy. Pleura: No pleural effusion or significant pneumothorax. Musculoskeletal: No acute osseous abnormality. Upper abdomen: Limited portions of the upper abdomen are unremarkable. IMPRESSION: 1. Unremarkable CTA chest. There is no evidence of a pulmonary arterial filling defect to suggest pul monary embolism. HS:Y
--- NOTE | 2024-06-12 14:26 | DVHPN2 ---
Consult Progress Note Date Seen: Jun 12, 2024 Subjective Patient reports: Feels better Review of Systems: HEENT:Normal, CVS:Normal, RESPIRATORY:Normal, GI:Normal, :Normal, MSK:Normal, NEURO:Normal Objective vital signs Vital Sign Date Time Temp Pulse Resp B/P (MAP) Pulse Ox O2 Delivery O2 Flow Rate FiO2 06/12/24 12:34 97.5 54 20 110/63 (79) 96 97.5 06/12/24 08:00 Room Air* 0 21 Total Intake and Output 06/11/24 06/11/24 06/12/24 15:00 23:00 07:00 Intake Total 0 ml Output Total 925 ml 0 ml Balance -925 ml 0 ml medications Current Medications Medications Dose Ordered Sig/Christofer Route Start Time Stop Time Status Last Admin Dose Admin Acetaminophen 650 mg Q6HP PRN PO 06/11/24 08:30 Acetaminophen/ Hydrocodone Bitart 1 tab Q4HP PRN PO 06/11/24 08:30 Ondansetron HCl 4 mg Q4HP PRN IV 06/11/24 08:30 Nitroglycerin 0.4 mg Q5MINP PRN SL 06/11/24 08:30 Morphine Sulfate 2 mg Q30M PRN IV 06/11/24 08:30 Examination: GENERAL:Normal, HEENT:Normal, NECK:Normal, LUNGS:Normal, CVS:Normal, ABDOMEN:Normal, MSK:Normal, SKIN:Normal, NEURO:Normal, :Normal laboratory and microbiology Laboratory Tests 06/12/24 05:05 Test 06/12/24 05:05 Range/Units Serum Glucose 94 74-106 mg/dL Problem List/Assessment/Plan Problem List/Assessment/Plan Chest pain ruled out coronary artery disease Rule out structural heart disease Sinus bradycardia Borderline dyslipidemia Acute hyperkalemia Plan/Recommendation Echocardiogram showed 55% EF Treadmill stress test showed low probability of inducible ischemia Uneventful Mac protocol Thank you for allowing participate in this case, there is no further workup indicated at this time. We are signing off case discussed with Dr. Bartlett critical care, time spent: 44 minutes Plan discussed with: Patient Date of Service: Jun 12, 2024 Billing Provider: HANNA BARTLETT MD Cardiology Common Codes: [id number] HOSP CARE([facility] FARIDA MONTE RESIDENT Jun 12, 2024 14:26
[2024-06-13] VITALS (7 sets, daily range): BP systolic 106–125; BP diastolic 42–73; PULSE 45–98; RESP 16–20; TEMP 37; O2SAT 93–100
[2024-06-13] MEDS: SODIUM CHLORIDE 0.9% 1,000 ML IV SCH (05:56)
[2024-06-13 06:21] LABS: Basophils # (auto) 0 10 ^3/uL (0-0.2); Basophils % (auto) 0.5 % (0.0-2.0); Eosinophils # (auto) 0.1 10 ^3/uL (0-0.8); Eosinophils % (auto) 1.8 % (0.0-7.0); Hematocrit 47.5 % (41.0-53.0); Hemoglobin 16.4 g/dL (13.5-17.5); Lymphocytes # (auto) 1.6 10 ^3/uL (0.4-5.4); Lymphocytes % (auto) 33.2 % (10.0-50.0); Mean Corpuscular Hemoglobin 30.8 pg (28.0-32.0); Mean Corpuscular Hgb Conc. 34.6 g/dL (32.0-36.0); Mean Corpuscular Volume 89.1 fL (80.0-100.0); Monocytes # (auto) 0.5 10 ^3/uL (0-1.3); Monocytes % (auto) 9.9 % (0.0-12.0); Neutrophils # (auto) 2.6 10 ^3/uL (1.6-8.6); Neutrophils % (auto) 54.6 % (37.0-80.0); Nucleated Red Blood Cells % 0.2 %; Platelet Count (auto) 212 10^3/uL (140-450); Red Blood Cells 5.33 10^6/uL (4.5-5.90); Red Cell Distribution Width 13.5 % (11.8-14.3); White Blood Cell 4.7 10^3/uL (4.4-10.8)
[2024-06-13 06:39] LABS: Alanine Aminotransferase 30 U/L (7-40); Albumin 4.2 g/dL (3.2-4.8); Alkaline Phosphatase 63 U/L (46-116); Anion Gap 7 (5-15); Aspartate Aminotransferase 18 U/L (13-40); Bilirubin, Total 0.7 mg/dL (0.2-1.0); Blood Urea Nitrogen 15 mg/dL (9-23); Calcium 9.5 mg/dL (8.7-10.4); Carbon Dioxide 24 mmol/L (20-31); Chloride 107 mmol/L (98-107); Creatine Kinase IFCC 73 U/L (46-171); Glucose 97 mg/dL (74-106); Sodium 138 mmol/L (136-145); Total Protein 6.6 g/dL (5.7-8.2)
[2024-06-13] MEDS: IOHEXOL 350 MG/ML 100ML IJ ONE (07:48)
--- NOTE | 2024-06-13 15:07 | DVHDS2 ---
Discharge Summary Date of Admission Jun 11, 2024 at 08:43 Date of Discharge: Jun 13, 2024 Labs/Diagnostic Data: Laboratory Results Test 06/13/24 05:36 06/11/24 18:21 06/11/24 09:10 06/11/24 09:07 White Blood Count 4.7 10^3/uL (4.4-10.8) Red Blood Count 5.33 10^6/uL (4.5-5.90) Hemoglobin 16.4 g/dL (13.5-17.5) Hematocrit 47.5 % (41.0-53.0) Mean Corpuscular Volume 89.1 fL (80.0-100.0) Mean Corpuscular Hemoglobin 30.8 pg (28.0-32.0) Mean Corpuscular Hemoglobin Concent 34.6 g/dL (32.0-36.0) Red Cell Distribution Width 13.5 % (11.8-14.3) Platelet Count 212 10^3/uL (140-450) Mean Platelet Volume 7.0 fL (6.9-10.8) Neutrophils (%) (Auto) 54.6 % (37.0-80.0) Lymphocytes (%) (Auto) 33.2 % (10.0-50.0) Monocytes (%) (Auto) 9.9 % (0.0-12.0) Eosinophils (%) (Auto) 1.8 % (0.0-7.0) Basophils (%) (Auto) 0.5 % (0.0-2.0) Neutrophils # (Auto) 2.6 10 ^3/uL (1.6-8.6) Lymphocytes # (Auto) 1.6 10 ^3/uL (0.4-5.4) Monocytes # (Auto) 0.5 10 ^3/uL (0-1.3) Eosinophils # (Auto) 0.1 10 ^3/uL (0-0.8) Basophils # (Auto) 0 10 ^3/uL (0-0.2) Nucleated Red Blood Cells 0.2 % Sodium Level 138 mmol/L (136-145) Potassium Level 4.0 mmol/L (3.5-5.1) Chloride Level 107 mmol/L (98-107) Carbon Dioxide Level 24 mmol/L (20-31) Anion Gap 7 (5-15) Blood Urea Nitrogen 15 mg/dL (9-23) Creatinine 0.94 mg/dL (0.700-1.30) Glomerular Filtration Rate Calc 101 mL/min (>90) BUN/Creatinine Ratio 16.0 (10.0-20.0) Serum Glucose 97 mg/dL (74-106) Calcium Level 9.5 mg/dL (8.7-10.4) Total Bilirubin 0.7 mg/dL (0.2-1.0) Aspartate Amino Transferase (AST) 18 U/L (13-40) Alanine Aminotransferase (ALT) 30 U/L (7-40) Alkaline Phosphatase 63 U/L (46-116) Creatine Kinase 73 U/L (46-171) Total Protein 6.6 g/dL (5.7-8.2) Albumin 4.2 g/dL (3.2-4.8) Influenza Type A Antigen Negative (Negative) Influenza Type B Antigen Negative (Negative) SARS-CoV-2 Antigen (Rapid) Negative (NEGATIVE) Urine Color Light-yellow (Yellow) Urine Clarity Clear (Clear) Urine pH 5.5 (5.0-9.0) Urine Specific [place] 1.025 (1.001-1.035) Urine Protein Negative (Negative) Urine Ketones Negative (Negative) Urine Blood Negative /uL (Negative) Urine Nitrite Negative (Negative) Urine Bilirubin Negative (Negative) Urine Urobilinogen Normal mg/dL (Negative) Urine Leukocyte Esterase Negative /uL (Negative) Urine RBC 1 /hpf (0 - 3) Urine WBC 1 /hpf (0 - 3) Urine Squamous Epithelial Cells None seen /hpf (<5) Urine Bacteria None seen /hpf (None Seen) Urine Mucus Few (None Seen) Urine Glucose Normal mg/dL (Normal) Urine Opiates Screen Neg (NEGATIVE) Urine Fentanyl Screen Neg (NEGATIVE) Urine Barbiturates Screen Neg (NEGATIVE) Urine Phencyclidine Screen Neg (NEGATIVE) Urine Amphetamines Screen Neg (NEGATIVE) Urine Benzodiazepines Screen Neg (NEGATIVE) Urine Cocaine Screen Neg (NEGATIVE) Urine Cannabinoids Screen Neg (NEGATIVE) Magnesium Level 2.0 mg/dL (1.6-2.6) Test 06/11/24 04:30 06/11/24 03:22 Troponin I High Sensitivity 3 ng/L (</=54) Hemoglobin A1c 5.3 % A1C (<5.7) B-Type Natriuretic Peptide 4.23 pg/mL (0-100) Triglycerides Level 62 mg/dL (< 150) Cholesterol Level 158 mg/dL (< 200) LDL Cholesterol 83 mg/dL (< 100) HDL Cholesterol 63 mg/dL (40-59) Thyroid Stimulating Hormone (TSH) 1.51 uIU/mL (0.55-4.78) Other Laboratory Tests 06/13/24 05:36 Brief Hx & Hospital Course: 48-year-old male admitted for chest pain, worked up by cardio with echo, stress test which were negative. Patient reported having chest pain after doing lot of chest exercises. stable leticia dc home to follow up with PCP Condition at Discharge: Good Final Diagnosis/Problems List Discharge Disposition: Home Discharge Instruct/Medications Diet: Regular Activity: No Restrictions, As Tolerated Follow Up/Referral: follow up with primary care 38 Discharge Statement: "Patient was advised to return to the ER or call 911 if any headaches, dizziness, shortness of breath, chest pain, abdominal pain, bleeding, fevers, or worsening of medical condition. Patient was counseled about treatment plan, medications, possible side effects, patientverbalized understanding. All questions were answered to the best of my ability. This discharge took greater then 30 minutes in planning, reviewing documentation, counseling the patient, and discussing with other team members." ASSESSMENT ASSESSMENT Assessment Noncardiac chest pain likely musculoskeletal related Patient reported has been working out more than usual All stress test has been negative Stable to discharge home Date of Service: Jun 13, 2024 Billing Provider: SHERRY CABALLERO MD Common Visit Codes: [id number] INP/OBS CARE(HIGH) SHERRY CABALLERO MD Jun 13, 2024 15:06
[2024-06-16] MEDS ORDERED: CYCL-611 PO (14:50)
[2024-06-16] MEDS ORDERED: IBU600T PO (14:50)
== END 2024-06-13 17:35 | disposition home or self-care (01) | DRG 203 ==
LOC: ER 03:14 → TELE 08:43 → TELE-WESTW 16:35
PROVIDERS: ADMIT Registered Nurse General Practice; ATTEND Internal Medicine
DX: R07.89 Other chest pain (principal); E78.5 Hyperlipidemia, unspecified; Z20.822 Contact with and (suspected) exposure to COVID-19; E87.5 Hyperkalemia; Z90.49 Acquired absence of other specified parts of digestive tract; Z83.3 Family history of diabetes mellitus; Z82.49 Family history of ischemic heart disease and other diseases of the circulatory system
CPT/HCPCS: 36415; 71045; 71046; 71275; 80048; 80053; 80061; 80307; 81001; 82550; 83036; 83735; 83880; 84132; 84443; 84484; 85025; 87426; 87804; 93005; 93017; 93306; 96374; 99291; G0378

== ENCOUNTER 2024-07-08 21:51 | Emergency (ER) | payer MEDICAID ==
[~2024-07-08] VITALS: Ht 175.3 cm; Wt 87.5 kg
[~2024-07-08 21:51] MED LIST changes: -DOCU-94 PO; -HYDR-4902 PO; +IBU600T PO; -IBUP1TAB5 PO; -LEVO500T91 PO; -METR-344 PO; -TRAM50TA2 PO
[2024-07-08 23:56] VITALS: BP 127/80; PULSE 70; RESP 16; TEMP 97.5; O2SAT 98
[2024-07-09] MEDS ORDERED: CYCL-837 PO (00:04)
[2024-07-09] MEDS ORDERED: IBUP-1456 PO (00:04)
--- NOTE | 2024-07-09 00:04 | ED.PDOC ---
Back pain HPI HPI Comments 48-year-old male presents to ER with complaints of back pain x2 days. Patient with past medical history significant for chronic lumbar back pain x "20+ years" reports he started experiencing right lower lumbar back pain x2 days that started with the cold weather . Denies any recent trauma/falls. He rates his current pain a 10/10 to right lower lumbar region with radiation down right posterior leg. Denies use of medications for current symptoms. Patient presents to ER ambulatory on arrival, with steady gait, in no distress. Denies fever, body aches, chills, nausea/vomiting, numbness/tingling, night sweats, abdominal/pelvic pain, shortness of breath, chest pain, changes in urination/BM or any further symptoms/complaints Chief Complaint: Back Pain Time Seen by MD: 22:06 Primary Care Provider: UNKNOWN Reviewed Notes: Nurses Notes, Medications, Allergies Allergies: Coded Allergies: NO KNOWN ALLERGIES (Unverified , 04/08/23) Home Meds Active Scripts Cyclobenzaprine Hcl (Cyclobenzaprine Hcl) 5 Mg Tab, 1 TAB PO QHSP, #14 TAB 0 Refills Prov:VICTOR HUGO ALVARADO 07/09/24 Ibuprofen (Ibuprofen) 800 Mg Tab, 1 TAB PO TID PRN, #30 TAB 0 Refills Prov:VICTOR HUGO ALVARADO 07/09/24 Ibuprofen Micronized (MOTRIN TABLET) 600 Mg Tb, 600 MG PO TID PRN for 10 Days, #30 TAB *Black box warning-NSAIDS can increase risk of [place] & hypertension, GI irritation, ulceration, bleed, perferation. Do not use post cardiac surgery. Use short duration/lowest effective dose. Prov:SHERRY CABALLERO MD 06/16/24 Cyclobenzaprine HCl (Cyclobenzaprine Hydrochlo) 10 Mg Tab, 10 MG PO TIDPRN PRN for 10 Days, #30 TAB Prov:SHERRY CABALLERO MD 06/16/24 Information Source: Patient Mode of Arrival: Ambulatory Past Medical History Past Medical History (Other): CHRONIC LUMBAR BACK PAIN Surgical History: Appendectomy Family History Family History: Family hx of DM, Family hx of Cancer Social History Smoker: Non-Smoker Alcohol: Occasionally Drugs: Denies Drug Use Lives In: Home Constitutional: denies: chills, diaphoresis, fatigue, fever, malaise, sweats, weakness, others EENTM: denies: blurred vision, double vision, ear bleeding, ear discharge, ear drainage, ear pain, ear ringing, eye pain, eye redness, hearing loss, mouth pain, mouth swelling, nasal discharge, nose bleeding, nose congestion, nose pain, photophobia, tearing, throat pain, throat swelling, voice changes, others Respiratory: denies: cough, hemoptysis, orthopnea, SOB at rest, shortness of breath, SOB with excertion, stridor, wheezing, others Cardiovascular: denies: chest pain, dizzy spells, diaphoresis, Dyspnea on exertion, edema, irregular heart beat, left arm pain, lightheadedness, palpitations, PND, syncope, others Gastrointestinal: denies: abdomen distended, abdominal pain, blood streaked bowels, constipated, diarrhea, dysphagia, difficulty swallowing, hematemesis, melena, nausea, poor appetite, poor fluid intake, rectal bleeding, rectal pain, vomiting, others Genitourinary: denies: burning, dysuria, flank pain, frequency, hematuria, incontinence, penile discharge, penile sore, pain, testicle pain, testicle s welling, urgency, others Neurological: denies: dizziness, fainting, headache, left sided numbness, left sided weakness, numbness, paresthesia, pre-existing deficit, right sided numbness, right sided weakness, seizure, speech problems, tingling, tremors, weakness, others Musculoskeletal: reports: others (As stated in HPI) Integumetry: denies: bruises, change in color, change in hair/nails, dryness, laceration, lesions, lumps, rash, wounds, others Allergic/Immunocompromised: denies: Difficulty Healing, Frequent Infections, Hives, Itching, others Hematologic/Lymphatic: denies: anemia, blood clots, easy bleeding, easy bruising, swollen glands, others Endocrine: denies: excessive hunger, excessive sweating, excessive thirst, excessive urination, flushing, intolerance to cold, intolerance to heat, unexplained weight gain, unexplained weight loss, others Psychiatric: denies: anxiety, bipolar disorder, depression, hopeless, panic disorder, schizophrenia, sleepless, suicidal, others Physical Exam General Appearance: No Apparent Distress HEENT: PERRL/EOMI Neck: Full Range of Motion, Non-Tender, Normal Respiratory: Chest Non-Tender, Lungs Clear, No Accessory Muscle Use, No Respiratory Distress, Normal Breath Sounds Cardiovascular: No Murmur, No Gallop, Regular Rate/Rhythm Breast Exam: Deferred Gastrointestinal: Non Tender, No Pulsatile Mass, Soft Genitalia: Deferred Pelvic: Deferred Rectal: Deferred Extremities: No calf tenderness, Normal capillary refill, Normal range of motio n, No pedal edema Musculoskeletal : Extremity Location: Back (Slight TTP to right lower lumbar paraspinals noted. No skin changes noted. Steady gait appreciated) Neurologic: Alert, No Motor Deficits, Normal Affect, Normal Mood, No Sensory Deficits Cerebellar Function: Normal Reflexes: Normal Skin: Dry, Normal Color, Warm Peripheral Pulses: 2+ femoral (R), 2+ femoral (L), 2+ dorsalis pedis (R), 2+ dorsalis pedis (L), 2+ Radial (R), 2+ Radial (L), 2+ Brachial (R), 2+ Brachial (L) Lymphatic: No Adenopathy Was a procedure done? Was a procedure done?: No Sedation Sedation?: No Back Pain Differential Dx Differential Diagnosis: AAA, Fracture, Urinary Tract Infection, Other (Neurovascular injury) X-Ray, Labs, Meds, VS Vital Signs Date Time Temp Pulse Resp B/P (MAP) Pulse Ox O2 Delivery O2 Flow Rate FiO2 07/08/24 23:56 97.5 70 16 127/80 (96) 98 97.5 07/08/24 23:56 70 07/08/24 21:59 97.5 73 15 132/86 (101) 97 Toradol 60 mg IM ordered Patient neurovascularly intact and reported improvement in symptoms prior to discharge Advised to rest/no strenuous activity Advised to follow up with PCP in 1-2 days Patient verbalized understanding and agreeable with current plan of care Advised to return to ER immediately if symptoms worsen Time of 1ST Reevaluation: 23:44 Reevaluation 1ST: N/A Patient Education/Counseling: Diagnosis, Treatment, Prognosis, Need For Follow Up Family Education/Counseling: No Family Present Departure 1 Departure Time of Disposition: 00:00 Impression: Primary Impression: Acute exacerbation of chronic low back pain Disposition: HOME / SELF CARE / HOMELESS Condition: Stable e-Prescriptions Cyclobenzaprine Hcl (Cyclobenzaprine Hcl) 5 Mg Tab 1 TAB PO QHSP, #14 TAB 0 Refills Prov: FAVOT,VICTOR HUGO PA 07/09/24 Ibuprofen (Ibuprofen) 800 Mg Tab 1 TAB PO TID PRN, #30 TAB 0 Refills Prov: VICTOR HUGO ALVARADO 07/09/24 Discharged With: Self Critical Care Note Critical Care Time?: No Stability Stability form required: No Heart Score Heart Score: Heart Score Response (Comments) Value History N/A 0 EKG N/A 0 Age N/A 0 Risk Factors N/A 0 Troponin N/A 0 Total 0 VICTOR HUGO ALVARADO Jul 09, 2024 00:04
[2024-07-09] MEDS: KETOROLAC TROMETH 60MG/2ML VIAL IM ONE (00:33)
[2024-07-09] MEDS ORDERED: DICY10CA PO (20:27)
== END 2024-07-09 00:38 | disposition home or self-care (01) ==
LOC: ER 21:51
DX: M54.50 Low back pain, unspecified (principal); G89.29 Other chronic pain; Z90.49 Acquired absence of other specified parts of digestive tract
CPT/HCPCS: 96372; 99283; J1885

== ENCOUNTER 2024-07-09 18:40 | Emergency (ER) | payer MEDICAID ==
[~2024-07-09] VITALS: Ht 175.3 cm; Wt 86.2 kg
[~2024-07-09 18:40] MED LIST changes: +CYCL-837 PO; +IBUP-1456 PO
--- NOTE | 2024-07-09 19:36 | ED.PDOC ---
GI ASSESSMENT HPI Comments 48 y.o male presents to the ED for a chief complaint of chronic right low quadrant pain that has been ongoing for the past 3 years. Patient reports having an appendectomy done but states he still has pain present there, worse when taking Tylenol. Patient states he was seen at this facility yesterday for same complaint, but [facility] medical electronic records show he was here for chronic lumbar pain. Patient states receiving a pain injection which slightly relieved his pain and was looking to get it again. Chief Complaint: Abdominal Pain Time Seen by MD: 19:29 Primary Care Provider: UNKNOWN Reviewed Notes: Nurses Notes, Medications, Allergies Allergies: Coded Allergies: NO KNOWN ALLERGIES (Unverified , 04/08/23) Home Meds Active Scripts Cyclobenzaprine Hcl (Cyclobenzaprine Hcl) 5 Mg Tab, 1 TAB PO QHSP, #14 TAB 0 Refills Prov:VICTOR HUGO ALVARADO 07/09/24 Ibuprofen (Ibuprofen) 800 Mg Tab, 1 TAB PO TID PRN, #30 TAB 0 Refills Prov:VICTOR HUGO ALVARADO 07/09/24 Ibuprofen Micronized (MOTRIN TABLET) 600 Mg Tb, 600 MG PO TID PRN for 10 Days, #30 TAB *Black box warning-NSAIDS can increase risk of [place] & hypertension, GI irritation, ulceration, bleed, perferation. Do not use post cardiac surgery. Use short duration/lowest effective dose. Prov:SHERRY CABALLERO MD 06/16/24 Cyclobenzaprine HCl (Cyclobenzaprine Hydrochlo) 10 Mg Tab, 10 MG PO TIDPRN PRN for 10 Days, #30 TAB Prov:SHERRY CABALLERO MD 06/16/24 Information Source: Patient Mode of Arrival: Ambulatory Timing: Came on: Gradually Duration: Since onset Prehospital treatment: Pain Meds Quality: Sharp Vomitus: None Stool: Normal Severity: Moderate Recent: None Recent Hx of: Other (Low back pain concerns with sciatica) Pain Location: RLQ Modifying Factors: Nothing Associated sign and symptoms: Abdominal Pain Past Medical History PAST MEDICAL HISTORY: Denies Past Medical History (Other): chronic back and abdominal pain Surgical History: Appendectomy Family History Family History: Family hx of DM, Family hx of Cancer Social History Smoker: Non-Smoker Alcohol: Occasionally Drugs: Denies Drug Use Lives In: Home Constitutional: denies: chills, diaphoresis, fatigue, fever, malaise, sweats, weakness, others EENTM: denies: blurred vision, double vision, ear bleeding, ear discharge, ear drainage, ear pain, ear ringing, eye pain, eye redness, hearing loss, mouth pain, mouth swelling, nasal discharge, nose bleeding, nose congestion, nose pain, photophobia, tearing, throat pain, throat swelling, voice changes, others Respiratory: denies: cough, hemoptysis, orthopnea, SOB at rest, shortness of breath, SOB with excertion, stridor, wheezing, others Cardiovascular: denies: chest pain, dizzy spells, diaphoresis, Dyspnea on exertion, edema, irregular heart beat, left arm pain, lightheadedness, palpitations, PND, syncope, others Gastrointestinal: reports: abdominal pain; denies: abdomen distended, blood streaked bowels, constipated, diarrhea, dysphagia, difficulty swallowing, hematemesis, melena, nausea, poor appetite, poor fluid intake, rectal bleeding, rectal pain, vomiting, others Genitourinary: denies: burning, dysuria, flank pain, frequency, hematuria, incontinence, penile discharge, penile sore, pain, testicle pain, testicle swelling, urgency, others Neurological: denies: dizziness, fainting, headache, left sided numbness, left sided weakness, numbness, paresthesia, pre-existing deficit, right sided numbness, right sided weakness, seizure, speech problems, tingling, tremors, weakness, others Musculoskeletal: reports: back pain; denies: gout, joint pain, joint swelling, muscle pain, muscle stiffness, neck pain, others Integumetry: denies: bruises, change in color, change in hair/nails, dryness, laceration, lesions, lumps, rash, wounds, others Allergic/Immunocompromised: denies: Difficulty Healing, Frequent Infections, Hives, Itching, others Hematologic/Lymphatic: denies: anemia, blood clots, easy bleeding, easy bruising, swollen glands, others Endocrine: denies: excessive hunger, excessive sweating, excessive thirst, excessive urination, flushing, intolerance to cold, intolerance to heat, unexplained weight gain, unexplained weight loss, others Psychiatric: denies: anxiety, bipolar disorder, depression, hopeless, panic disorder, schizophrenia, sleepless, suicidal, others All Other Systems: Reviewed and Negative Physical Exam General Appearance: Moderate Distress ([id number] distress due to abdominal and back pain concerns.), Normal HEENT: Normal ENT Inspection, Pharynx Normal, TMs Normal Neck: Full Range of Motion, Non-Tender, Normal, Normal Inspection Respiratory: Chest Non-Tender, Lungs Clear, No Accessory Muscle Use, No Respiratory Distress, Normal Breath Sounds Cardiovascular: No Edema, No JVD, No Murmur, No Gallop, Normal Peripheral Pulses, Regular Rate/Rhythm Breast Exam: Deferred Gastrointestinal: Other (Patient complains of diffuse epigastric and periumbilical tenderness to palpation. No pulsatile masses. No signs of trauma.) Genitalia: Deferred Pelvic: Deferred Rectal: Deferred Extremities: No calf tenderness, Normal capillary refill, Normal inspection, Normal range of motion, Non-tender, No pedal edema Musculoskeletal : Location: Bilateral Extremity Location: Back (Diffuse bilateral lumbar tenderness to palpation throughout. No signs of trauma. No step-offs noted.) Apperance: Normal Neurologic: Alert, back sizer II-XII nml as Tested, No Motor Deficits, Normal Affect, Normal Mood, No Sensory Deficits Cerebellar Function: Normal Reflexes: Normal Skin: Dry, Normal Color, Warm Lymphatic: No Adenopathy Was a procedure done? Was a procedure done?: No GI differential Dx Differential Diagnosis: Inflammatory BD, Other (Chronic abdominal pain, chronic low back pain) X-Ray, Labs, Meds, VS Vital Signs Date Time Temp Pulse Resp B/P (MAP) Pulse Ox O2 Delivery O2 Flow Rate FiO2 07/09/24 19:25 99.4 109 17 122/73 (89) 95 X-Ray, Labs, Meds, VS Comment Patient was given a injection of Toradol and sent home with additional NSAIDs. Due to the patient's use of NSAIDs, patient was given a shot of dexamethasone to aid in some relief. Patient needs to follow up with his primary care provider for continued evaluation of his chronic abdominal and low back pain concerns. 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 e-Prescriptions Dicyclomine Hcl (BENTYL CAPSULE) 10 Mg Cp 1 CAP PO Q6HPRN, #20 CAP 0 Refills Prov: BHARATH WHITE PAC 07/09/24 Discharged With: Self, Friend Critical Care Note Critical Care Time?: No Stability Stability form required: No I personally scribed for BHARATH WHITE PAC ([email or web address]) on 07/09/24 at 19:36. Electronically submitted by Anitra Gonzalez ([facility]). BHARATH WHITE PAC Jul 09, 2024 19:36
[2024-07-09] MEDS: DexAMETHasone SOD PHOS 10MG/1ML VIAL INJ IM ONE (20:23)
[2024-07-09] MEDS ORDERED: DICY10CA PO (20:27)
[2024-07-09] MEDS ORDERED: DICYCLOMINE HCL (10MG/ML) 2 ML AMPULE IM ONE (20:30)
[2024-07-09 20:31] VITALS: BP 127/62; PULSE 104; RESP 15; TEMP 99.1; O2SAT 95
== END 2024-07-09 20:47 | disposition home or self-care (01) ==
LOC: ER 18:40
DX: M54.50 Low back pain, unspecified (principal); R10.31 Right lower quadrant pain; G89.29 Other chronic pain; Z90.49 Acquired absence of other specified parts of digestive tract
CPT/HCPCS: 96372; 99283; J1100

== ENCOUNTER 2024-07-12 09:23 | Emergency (ER) | payer MEDICAID ==
[~2024-07-12] VITALS: Ht 175.3 cm; Wt 88.7 kg
[~2024-07-12 09:23] MED LIST changes: +DICY10CA PO
[2024-07-12] MEDS: HYDROcodone-ACET 10/325MG TAB PO ONE (11:10)
[2024-07-12] MEDS: KETOROLAC TROMETH 60MG/2ML VIAL IM ONE (11:10)
--- NOTE | 2024-07-12 11:11 | ED.PDOC ---
History of Present Illness HPI Comments 48M who is chinese speaking, presents to the ER w/ his spouse and w/ prior Hx of Chronic ABD/Back pain which may be associated to the c/c of back pain. Pt reports that he was lifting something heavy 20 years ago, then after he started to get sharp lower back pain that has not gone away since. Pt notes that he is unable to sit down for long periods of time or even sleep without having back pain. Pt reports that he has told his PCP but all they do is give him a shot of steroids and ibuprofen for the pain. Pt states "it does not work". SHx of Appendectomy. Denies chills, fever, N/V/D, SOB, CP or other associated symptoms, modifiers, or recent injuries at this time. Chief Complaint: Back Pain Time Seen by MD: 10:45 Primary Care Provider: UNKNOWN Reviewed Notes: Nurses Notes, Medications, Allergies Allergies: Coded Allergies: NO KNOWN ALLERGIES (Unverified , 04/08/23) Home Meds Active Scripts Dicyclomine Hcl (BENTYL CAPSULE) 10 Mg Cp, 1 CAP PO Q6HPRN, #20 CAP 0 Refills Prov:BHARATH WHITE 07/09/24 Cyclobenzaprine Hcl (Cyclobenzaprine Hcl) 5 Mg Tab, 1 TAB PO QHSP, #14 TAB 0 Refills Prov:VICTOR HUGO ALVARADO 07/09/24 Ibuprofen (Ibuprofen) 800 Mg Tab, 1 TAB PO TID PRN, #30 TAB 0 Refills Prov:VICTOR HUGO ALVARADO 07/09/24 Ibuprofen Micronized (MOTRIN TABLET) 600 Mg Tb, 600 MG PO TID PRN for 10 Days, #30 TAB *Black box warning-NSAIDS can increase risk of [place] & hypertension, GI irritation, ulceration, bleed, perferation. Do not use post cardiac surgery. Use short duration/lowest effective dose. Prov:SHERRY CBAALLERO MD 06/16/24 Cyclobenzaprine HCl (Cyclobenzaprine Hydrochlo) 10 Mg Tab, 10 MG PO TIDPRN PRN for 10 Days, #30 TAB Prov:SHERRY CABALLERO MD 06/16/24 Information Source: Patient, Spouse Mode of Arrival: Ambulatory Severity: Moderate Timing: Months Duration: Since onset Prehospital treatment: None Past Medical History PAST MEDICAL HISTORY: Denies Past Medical History (Other): Chronic back/ABD pain Surgical History: Appendectomy Family History Family History: Reviewed,noncontributory to illness, Unknown Social History Smoker: Unknown Alcohol: Unknown Drugs: Unknown Lives In: Home Constitutional: denies: chills, diaphoresis, fatigue, fever, malaise, sweats, weakness, others EENTM: denies: blurred vision, double vision, ear bleeding, ear discharge, ear drainage, ear pain, ear ringing, eye pain, eye redness, hearing loss, mouth pain, mouth swelling, nasal discharge, nose bleeding, nose congestion, nose pain, photophobia, tearing, throat pain, throat swelling, voice changes, others Respiratory: denies: cough, hemoptysis, orthopnea, SOB at rest, shortness of breath, SOB with excertion, stridor, wheezing, others Cardiovascular: denies: chest pain, dizzy spells, diaphoresis, Dyspnea on exertion, edema, irregular heart beat, left arm pain, lightheadedness, palpitations, PND, syncope, others Gastrointestinal: denies: abdomen distended, abdominal pain, blood streaked bowels, constipated, diarrhea, dysphagia, difficulty swallowing, hematemesis, melena, nausea, poor appetite, poor fluid intake, rectal bleeding, rectal pain, vomiting, others Genitourinary: denies: burning, dysuria, flank pain, frequency, hematuria, incontinence, penile discharge, penile sore, pain, testicle pain, testicle swelling, urgency, others Neurological: denies: dizziness, fainting, headache, left sided numbness, left sided weakness, numbness, paresthesia, pre-existing deficit, right sided numbness, right sided weakness, seizure, speech problems, tingling, tremors, weakness, others Musculoskeletal: reports: back pain; denies: gout, joint pain, joint swelling, muscle pain, muscle stiffness, neck pain, others Integumetry: denies: bruises, change in color, change in hair/nails, dryness, laceration, lesions, lumps, rash, wounds, others Allergic/Immunocompromised: denies: Difficulty Healing, Frequent Infections, Hives, Itching, others Hematologic/Lymphatic: denies: anemia, blood clots, easy bleeding, easy bruising, swollen glands, others Endocrine: denies: excessive hunger, excessive sweating, excessive thirst, excessive urination, flushing, intolerance to cold, intolerance to heat, unexplained weight gain, unexplained weight loss, others Psychiatric: denies: anxiety, bipolar disorder, depression, hopeless, panic disorder, schizophrenia, sleepless, suicidal, others All Other Systems: Reviewed and Negative Physical Exam General Appearance: Moderate Distress, Normal HEENT: Normal ENT Inspection, Pharynx Normal, TMs Normal Neck: Full Range of Motion, Non-Tender, Normal, Normal Inspection Respiratory: Chest Non-Tender, Lungs Clear, No Accessory Muscle Use, No Respiratory Distress, Normal Breath Sounds Cardiovascular: No Edema, No JVD, No Murmur, No Gallop, Normal Peripheral Pulses, Regular Rate/Rhythm Breast Exam: Deferred Gastrointestinal: No Organomegaly, Non Tender, No Pulsatile Mass, Normal Bowel Sounds, Soft Genitalia: Deferred Pelvic: Deferred Rectal: Deferred Extremities: No calf tenderness, Normal capillary refill, Normal inspection, Normal range of motion, Non-tender, No pedal edema Musculoskeletal : Apperance: Normal Neurologic: Alert, gold prospector II-XII nml as Tested, No Motor Deficits, Normal Affect, Normal Mood, No Sensory Deficits Cerebellar Function: Normal Reflexes: Normal Skin: Dry, Normal Color, Warm Peripheral Pulses: 3+ Radial (R), 3+ Radial (L) Lymphatic: No Adenopathy Was a procedure done? Was a procedure done?: No Differential Dx Considerations may include: Chronic pain syndrome Musculoskeletal pain X-Ray, Labs, Meds, VS Vital Signs Date Time Temp Pulse Resp B/P (MAP) Pulse Ox O2 Delivery O2 Flow Rate FiO2 07/12/24 11:16 84 14 95 Room Air* 0 21 07/12/24 11:07 98.2 81 20 127/69 (88) 97 98.2 07/12/24 11:07 81 20 97 Room Air 07/12/24 09:40 98.9 93 16 142/70 (94) 100 Current Medications Medications (Trade) Dose Ordered Sig/Christofer Route Start Time Stop Time Status Last Admin Ketorolac Tromethamine (Toradol Injection) 60 mg ONCE ONCE IM 07/12/24 11:00 07/12/24 11:01 DC 07/12/24 11:10 Acetaminophen/ Hydrocodone Bitart ([place] 10/325MG Tab) 1 tab ONCE ONCE PO 07/12/24 11:00 07/12/24 11:01 DC 12/8/24 11:10 Patient alert. Came in for back pain. Has been here many times for similar symptom. Vitals stable. Reviewed his previous visit. Was given Toradol. Was given prescription of steroid pain medication. Explained to the patient. Symptoms for many years. No sign of any trauma. No neurological symptoms. No difficulty with bowel movement. No neurological symptoms. Good muscle strength in all extremities. Was told to follow up with his primary care physician. Was told to come back if there is any problem. Time of 1ST Reevaluation: 11:15 Reevaluation 1ST: Improved Patient Education/Counseling: Diagnosis, Treatment, Prognosis Family Education/Counseling: Diagnosis, Treatment, Prognosis Departure 1 Departure Time of Disposition: 11:49 Impression: Primary Impression: Musculoskeletal pain Additional Impression: Acute exacerbation of chronic low back pain Disposition: 01 HOME / SELF CARE / HOMELESS Condition: Good e-Prescriptions Hydrocodone-Acetaminophen (Hydrocodone Bitartrate/AC 5-325 mg) 1 Tab Tab 1 TAB PO DAILY for 7 Days, #7 TAB Prov: ANA CASTANO MD 07/12/24 Prednisone (Prednisone) 10 Mg Tab 10 MG PO DAILY for 7 Days, #7 MG Prov: ANA CASTANO MD 07/12/24 Discharged With: Self Critical Care Note Critical Care Time?: No Stability Stability form required: No I personally scribed for ANA CASTANO MD ([email or web address]) on 07/12/24 at 11:11. Electronically submitted by Tu Whelan ([email or web address]). ANA CASTANO MD Jul 12, 2024 11:11
[2024-07-12 11:16] VITALS: PULSE 84; RESP 14; O2SAT 95
[2024-07-12] MEDS ORDERED: PRED10TA PO (11:51)
[2024-07-12] MEDS ORDERED: HYDR-4902 PO (11:51)
[2024-07-12 12:55] VITALS: BP 138/86; PULSE 92; RESP 18; TEMP 97.9; O2SAT 97
== END 2024-07-12 13:00 | disposition home or self-care (01) ==
LOC: ER 09:23
DX: G89.29 Other chronic pain (principal); M54.59 Other low back pain; Z79.899 Other long term (current) drug therapy; Z90.49 Acquired absence of other specified parts of digestive tract
CPT/HCPCS: 96372; 99283; J1885

== ENCOUNTER 2024-07-14 09:12 | Inpatient (IN) | payer MEDICAID ==
[~2024-07-14] VITALS: Ht 175.3 cm; Wt 85.2 kg
[~2024-07-14 09:12] MED LIST changes: +HYDR-4902 PO; +PRED10TA PO
--- NOTE | 2024-07-14 10:36 | ED.PDOC ---
Back pain HPI HPI Comments 48 M who is Iranian speaking, presents to the ER the chief complaint of atraumatic right lower back pain that radiates down the lateral right lower extremity. Pt reports that he was lifting something heavy 20 years ago, then after he started to get sharp lower back pain that has not gone away since. Pt notes that he is unable to sit down for long periods of time or even sleep without having back pain. Patient has been seen at this emergency department for the same complaint multiple times. Recently saw In the main emergency department, received portal and Gregory and medication helped temporarily. The patient was then discharged with Gregory 5/325 and patient states medication does not help. Pain is currently rated 10/10 Denies history of chronic steroid use or history of osteoporosis Denies any history of cancer Denies fevers chills night sweats nausea vomiting unintentional weight loss Denies IV drug use history of HIV/TB Denies abdominal "tearing" pain Denies syncope Denies urinary incontinence or urinary changes Denies numbness tingling of the groin or inner thigh Denies previous back procedure or surgery Chief Complaint: Back Pain Time Seen by MD: 09:35 Primary Care Provider: UNKNOWN Reviewed Notes: Nurses Notes, Medications, Allergies Allergies: Coded Allergies: NO KNOWN ALLERGIES (Unverified , 04/08/23) Home Meds Active Scripts Hydrocodone-Acetaminophen (Hydrocodone Bitartrate/AC 5-325 mg) 1 Tab Tab, 1 TAB PO DAILY for 7 Days, #7 TAB Prov:ANA CASTANO MD 07/12/24 Prednisone (Prednisone) 10 Mg Tab, 10 MG PO DAILY for 7 Days, #7 MG Prov:ANA CASTANO MD 07/12/24 Dicyclomine Hcl (BENTYL CAPSULE) 10 Mg Cp, 1 CAP PO Q6HPRN, #20 CAP 0 Refills Prov:BHARATH WHITE 07/09/24 Cyclobenzaprine Hcl (Cyclobenzaprine Hcl) 5 Mg Tab, 1 TAB PO QHSP, #14 TAB 0 Refills Prov:VICTOR HUGO ALVARADO 07/09/24 Ibuprofen (Ibuprofen) 800 Mg Tab, 1 TAB PO TID PRN, #30 TAB 0 Refills Prov:VICTOR HUGO ALVARADO 07/09/24 Ibuprofen Micronized (MOTRIN TABLET) 600 Mg Tb, 600 MG PO TID PRN for 10 Days, #30 TAB *Black box warning-NSAIDS can increase risk of PA & hypertension, GI irritation, ulceration, bleed, perferation. Do not use post cardiac surgery. Use short duration/lowest effective dose. Prov:SHERRY CABALLERO MD 06/16/24 Cyclobenzaprine HCl (Cyclobenzaprine Hydrochlo) 10 Mg Tab, 10 MG PO TIDPRN PRN for 10 Days, #30 TAB Prov:SHERRY CABALLERO MD 06/16/24 Information Source: Patient Mode of Arrival: Ambulatory Past Medical History PAST MEDICAL HISTORY: Denies Surgical History: Appendectomy Family History Family History: Reviewed,noncontributory to illness, Unknown Social History Smoker: Unknown Alcohol: Unknown Drugs: Unknown Lives In: Home All Other Systems: Reviewed and Negative (per hpi) Physical Exam General Appearance: No Apparent Distress, Normal HEENT: Normal ENT Inspection, Pharynx Normal, TMs Normal Neck: Full Range of Motion, Non-Tender, Normal, Normal Inspection Respiratory: Chest Non-Tender, Lungs Clear, No Accessory Muscle Use, No Respiratory Distress, Normal Breath Sounds Cardiovascular: No Edema, No JVD, No Murmur, No Gallop, Normal Peripheral Pulses, Regular Rate/Rhythm Breast Exam: Deferred Gastrointestinal: No Organomegaly, Non Tender, No Pulsatile Mass, Normal Bowel Sounds, Soft Genitalia: Deferred Pelvic: Deferred Rectal: Deferred Extremities: No calf tenderness, Normal capillary refill, Normal inspection, N ormal range of motion, Non-tender, No pedal edema Musculoskeletal : Extremity Location: Back (No gross abnormality on inspection. No midline tenderness. Localized right paraspinal lumbosacral tenderness to palpation.) Apperance: Normal Neurologic: Alert, event manager II-XII nml as Tested, No Motor Deficits, Normal Affect, Normal Mood, No Sensory Deficits Cerebellar Function: Normal Reflexes: Normal Skin: Dry, Normal Color, Warm Lymphatic: No Adenopathy Was a procedure done? Was a procedure done?: No Back Pain Differential Dx Differential Diagnosis: Musculoskeletal Pain, Other (Nerve impingement, central nerve stenosis,) X-Ray, Labs, Meds, VS Vital Signs Date Time Temp Pulse Resp B/P (MAP) Pulse Ox O2 Delivery O2 Flow Rate FiO2 07/14/24 09:26 98.1 86 16 146/88 (107) 98 X-Ray, Labs, Meds, VS Comment 48 M who is Iranian speaking, presents to the ER the chief complaint of atraumatic right lower back pain that radiates down the lateral right lower extremity. Although patient is nontoxic non ill-appearing, we will consult with the hospitalist for admission due to intractable back pain and possible MRI Patient agrees to plan Time of 1ST Reevaluation: 10:35 Reevaluation 1ST: Unchanged Patient Education/Counseling: Diagnosis, Treatment Family Education/Counseling: Diagnosis, Treatment Departure 1 Departure Time of Disposition: 10:36 Impression: Primary Impression: Chronic low back pain Qualified Codes: M54.41 - Lumbago with sciatica, right side; G89.29 - Other chronic pain Disposition: ADMITTED INPATIENT Condition: Fair Critical Care Note Critical Care Time?: No Stability Stability form required: No Heart Score Heart Score: Heart Score Response (Comments) Value History N/A 0 EKG N/A 0 Age N/A 0 Risk Factors N/A 0 Troponin N/A 0 Total 0 LUCY FIELD NP Jul 14, 2024 10:36
[2024-07-14 11:45] VITALS: PULSE 80; RESP 18; O2SAT 95
[2024-07-14] MEDS: MORPHINE SULFATE 4 MG/ML SYR/VIAL IM ONE (11:48)
[2024-07-14] MEDS ORDERED: ONDANSETRON HCL 4 MG/2 ML VIAL IV PRN (14:30)
[2024-07-14] MEDS ORDERED: ACETAMINOPHEN 325 MG TAB PO PRN (14:30)
[2024-07-14] MEDS: SODIUM CHLORIDE 0.9% 1,000 ML IV SCH (14:30)
--- NOTE | 2024-07-14 14:51 | DVHHP2 ---
History of Present Illness Reason for Visit: Intractable pain History of Present Illness 48-year-old obese patient with complaints of back pain patient has a longstanding history of back pain was recommended from the ED to be admitted for further back pain in evaluation and management no acute imaging is noted no acute labs at this point in time under the impression that the patient is being admitted for intractable pain at this point we will admit and do a full workup Cardiovascular: HTN Review of Systems Constitutional: Yes: Weakness; No: Fever, Chills, Sweats, Malaise, Other Eyes: No: Pain, Vision change, Conjunctivae inflammation, Eyelid inflammation, Other, Redness ENT: No: Ear pain, Ear discharge, Nose pain, Nose discharge, Nose congestion, Mouth pain, Mouth swelling, Throat pain, Throat swelling, Other Respiratory: No: Cough, Dry, Shortness of breath, SOB with excertion, Wheezing, Hemoptysis, Pleuritic Pain, Sputum, Wheezing, Other Cardiovascular: No: Chest Pain, Palpitations, Orthopnea, Paroxysmal Noc. Dyspnea, Edema, Lt Headedness, Other Gastrointestinal: No: Nausea, Vomiting, Abdominal Pain, Diarrhea, Constipation, Melena, Hematochezia, Other Genitourinary: No Dysuria, No Frequency, No Incontinence, No Hematuria, No Retention, No Other Musculoskeletal: back pain; No: other, neck pain, shoulder pain, arm pain, hand pain, leg pain, foot pain Skin: No: Rash, Lesions, Jaundice, Bruising, Other Neurological: No: Weakness, Numbness, Incoordination, Change in speech, Confusion, Seizures, Other Allergies: Coded Allergies: NO KNOWN ALLERGIES (Unverified , 04/08/23) Exam Vital Signs Vital Signs Date Time Temp Pulse Resp B/P (MAP) Pulse Ox O2 Delivery O2 Flow Rate FiO2 07/14/24 11:48 80 18 129/63 07/14/24 11:45 95 Room Air* 0 21 07/14/24 11:45 99.3 99.3 General Appearance: Oriented X3, moderate distress HEENT: Atraumatic, PERRLA Respiratory: Clear to auscultation, Normal air movement Cardiovascular: Regular rate, Normal S1, Normal S2 Abdominal: Normal bowel sounds, Soft, No tenderness Extremities: No clubbing, No cyanosis, No edema Skin: No rashes, No breakdown, No significant lesion Neuro: Normal gait, Normal speech Psych/Mental Status: Mood NL Assessment/Plan Assessment/Plan Admit to [facility] Intractable back pain Currently no labs no imaging present We will order labs CBC BNP X-ray of the back to rule out any acute injuries P.r.n. medications for pain management Being admitted as per ED recommendation Plan discussed with: Patient My Orders Orders - TALON HERNANDEZ MD Procedure Category Date Status Time Admit ADMIT 07/14/24 Transmitted 14:27 Code Status CODE 07/14/24 Transmitted 14:27 Vital Signs [facility] 07/14/24 In Process 14:27 Review Orders With [facility] 07/14/24 In Process Adm.Md 14:27 Regular Diet DIET 07/14/24 Transmitted Dinner Sodium Chloride 0.9% PHA 07/14/24 Logged 14:30 Lorazepam Tablet PHA 07/14/24 Logged (Ativan Tablet) 14:30 Alum & Mag PHA 07/14/24 Logged Hydrox-Simethicone 14:30 Docusate Sodium PHA 07/14/24 Logged Capsule (Colace 14:30 Acetaminophen Tablet PHA 07/14/24 Logged (Tylenol Tablet) 14:30 Temazepam (Restoril) PHA 07/14/24 Logged 14:30 Notify Md Of Changes [facility] 07/14/24 In Process From Base 14:27 Advance Directive [facility] 07/14/24 In Process 14:27 Basic Metabolic Panel LAB 07/14/24 Logged 14:27 Urinalysis LAB 07/14/24 Logged 14:27 Complete Blood Count LAB 07/14/24 Logged 14:27 Patient Condition ORDERS 07/14/24 Transmitted 14:27 Allergies [facility] 07/14/24 In Process 14:27 Hydrocodone-Acet PHA 07/14/24 Logged 5/325mg Tab (Coleman 14:30 Ondansetron Hcl PHA 07/14/24 Logged (Zofran) 14:30 Morphine Sulfate PHA 07/14/24 Logged Injection 14:30 Notify Md Of Changes [facility] 07/14/24 In Process From Base 14:27 Oxygen By Nasal RT 07/14/24 Transmitted Cannula 14:27 Problem List: (1) Chronic low back pain (2) Acute exacerbation of chronic low back pain (3) Musculoskeletal pain (4) DDD (degenerative disc disease), lumbar Date of Service: Jul 14, 2024 Billing Provider: TALON HERNANDEZ MD Common Visit Codes: [id number] INP/OBS CARE (HIGH) TALON HERNANDEZ MD Jul 14, 2024 14:51
[2024-07-14 15:10] LABS: Basophils # (auto) 0 10 ^3/uL (0-0.2); Basophils % (auto) 0.2 % (0.0-2.0); Eosinophils # (auto) 0.1 10 ^3/uL (0-0.8); Eosinophils % (auto) 0.7 % (0.0-7.0); Hemoglobin 14.1 g/dL (13.5-17.5); Lymphocytes # (auto) 0.7 10 ^3/uL (0.4-5.4); Lymphocytes % (auto) 9.8 % (10.0-50.0); Mean Corpuscular Hemoglobin 30.1 pg (28.0-32.0); Mean Corpuscular Hgb Conc. 34.4 g/dL (32.0-36.0); Mean Corpuscular Volume 87.5 fL (80.0-100.0); Monocytes % (auto) 13.6 % (0.0-12.0); Neutrophils # (auto) 5.8 10 ^3/uL (1.6-8.6); Neutrophils % (auto) 75.7 % (37.0-80.0); Platelet Count (auto) 112 10^3/uL (140-450); Red Blood Cells 4.68 10^6/uL (4.5-5.90); Red Cell Distribution Width 13.7 % (11.8-14.3); White Blood Cell 7.6 10^3/uL (4.4-10.8)
[2024-07-14 15:21] LABS: Potassium 4.7 mmol/L (3.5-5.1)
[2024-07-14 15:22] LABS: Anion Gap 8 (5-15); Calcium 9.2 mg/dL (8.7-10.4); Carbon Dioxide 29 mmol/L (20-31)
[2024-07-14 15:27] LABS: BUN/Creatinine Ratio 21.3 (10.0-20.0); Blood Urea Nitrogen 19 mg/dL (9-23); Chloride 97 mmol/L (98-107); Glucose 108 mg/dL (74-106); Sodium 134 mmol/L (136-145)
[2024-07-14 16:40] VITALS: BP 143/80; PULSE 79; PULSE 80; RESP 16; RESP 18; TEMP 99.9; O2SAT 91; O2SAT 98
[2024-07-14 21:27] VITALS: BP 141/61; PULSE 78; RESP 20; TEMP 100.8; O2SAT 95
[2024-07-14] MEDS: MORPHINE SULFATE INJ 2 MG/ml SYRG IV PRN (23:23)
[2024-07-15] VITALS (7 sets, daily range): BP systolic 120–165; BP diastolic 58–74; PULSE 72–89; RESP 17–20; TEMP 98.3–99.7; O2SAT 93–96
[2024-07-15] MEDS: KETOROLAC TROMETH 30 MG/ML 1ML VIAL IV ONE (01:30)
[2024-07-15] MEDS: LORazepam 0.5 MG TAB PO PRN (01:44)
[2024-07-15] MEDS: DOCUSATE SOD 100 MG CAP PO PRN (01:44)
[2024-07-15] MEDS: MAALOX PLUS or MAALOX 30 ML PO PRN (01:44)
[2024-07-15] MEDS: TEMAZEPAM 15 MG CAP PO PRN (01:48)
[2024-07-15] MEDS: HYDROcodone-ACET 5/325MG TAB PO PRN (08:59)
--- NOTE | 2024-07-15 11:15 | DVH ---
CLINICAL INDICATION: LBP >6w TECHNIQUE: XY LUMBAR SPINE 4+ VIEW Comparison: None FINDINGS/IMPRESSION: There is no evidence of acute fracture or dislocation. The visualized joint space is well maintained. The alignment is anatomical. There is no radiopaque foreign body.
[2024-07-15 11:21] LABS: Urine Bacteria FEW /hpf (None Seen); Urine Blood 1+ /uL (Negative); Urine Clarity Turbid (Clear); Urine Color Colorless (Yellow); Urine Protein, UAD Negative (Negative); Urine Specific Gravity 1.013 (1.001-1.035); Urine Urobilinogen Normal (Negative); Urine WBC 18 /hpf (0 - 3)
[2024-07-15] MEDS: MORPHINE SULFATE 4 MG/ML SYR/VIAL IV ONE (12:41)
--- NOTE | 2024-07-15 13:56 | DVH ---
MRI LUMBAR SPINE CLINICAL HISTORY: pain/ pinch nerve TECHNIQUE: Multi planar, multi sequence MR images of the lumbar spine without intravenous contrast. Comparison: CT LS SPINE WO CONTRAST on DOS: 06/03/23 FINDINGS: The conus terminates at an appropriate level and demonstrates normal caliber and signal. The lumbar v ertebral body heights are maintained. There is decreased T1 marrow signal throughout which May relate to red marrow hyperplasia.. There is mild straightening of the lumbar lordosis. There is disc desicc ation with disc space narrowing at L4-L5 and L5-S1. The paraspinal soft tissues appear within normal limits. At L1-L2 and L2-L3 there is no significant disc herniation. There is no canal or foraminal stenosis. At L3-L4 there is mild disc bulge eccentric to the left. There is no canal stenosis. There is mild l eft neural foraminal narrowing. At L4-L5 there is diffuse disc bulge flattening of the ventral thecal sac without canal stenosis. The re is mild right neural foraminal narrowing. At L5-S1 there is disc bulge with central annular fissure. There is no canal stenosis. There is mild bilateral neural foraminal narrowing. IMPRESSION: 1. Degenerative changes in the lower lumbar spine as described by levels above. There is no spinal c anal stenosis. There is mild neural foraminal narrowing at multiple levels. 2. The lumbar vertebral bodies demonstrate diffusely decreased marrow signal which May relate to red marrow hyperplasia. Clinical correlation is recommended. HS:Y
[2024-07-15] MEDS ORDERED: MORPHINE SULFATE INJ 2 MG/ml SYRG IV PRN (15:30)
[2024-07-15] MEDS: SODIUM CHLORIDE 0.9% 1,000 ML IV ONE (15:30)
--- NOTE | 2024-07-15 15:35 | DVHPN2 ---
Assessment/Plan Assessment/Plan Progress note Subjective 48 M with chronic LBP with acute onset worsening pain, on my exam SLR positive with weakness and gait disturbance. Objective Physical exam Alert, oriented x3 PERRLA Looks uncomfortable Clear breath sounds bilaterally S1-S2 regular rate and rhythm no murmur Abdomen soft nontender, no organomegaly mild paraspinal tenderness Weak gait when trying to stand up Equal and decreased strength bilaterally on lower extremity No lower extremity edema SLR positive severe pain on passive flexion and extension of b/l hip radiating to groin Lab [facility] MRI L-spine 1. Degenerative changes in the lower lumbar spine as described by levels above. There is no spinal canal stenosis. There is mild neural foraminal narrowing at multiple levels. 2. The lumbar vertebral bodies demonstrate diffusely decreased marrow signal which May relate to red marrow hyperplasia. Clinical correlation is recommended. Assessment and plan Acute on chronic low back pain mild neural foraminal narrowing on multiple level weakness consult spine, rec to get c spine MRI tylenol, toradol chrissie morphine PRN severe pain gabapentin 300 TID dexa 10 Q8 Replete electrolytes Diet regular DVT prophylaxis hold 84 minutes critical care time spent on this patient including evaluation, chart review, formulating plan and communication with team, excluding any procedures or point of care imaging Plan discussed with: Patient My Orders Orders - SHERRY CABALLERO MD Procedure Category Date Status Time Lumbar Spine 4+ View XY 07/15/24 Resulted 09:57 Lumbar Spine Wo MRI 07/15/24 Resulted Contrast 12:09 Sodium Chloride 0.9% PHA 07/15/24 In Process 15:30 Date of Service: Jul 15, 2024 Billing Provider: HSERRY CABALLERO MD Common Visit Codes: [id number] CARE 30-74 MIN, [id number] CARE-EACH +30MIN SHERRY CABALLERO MD Jul 15, 2024 15:35
[2024-07-15] MEDS: DexAMETHasone SOD PHOS 10MG/1ML VIAL INJ IV SCH (16:22)
--- NOTE | 2024-07-15 16:34 | DVH ---
MRI CERVICAL SPINE CLINICAL HISTORY: [facility] surgeon Comparison: MRI LUMBAR SPINE WO CONTRAST on DOS: 07/15/24 Technique: Multi planar, multi sequence MR images of the cervical spine without intravenous contrast. FINDINGS: The cervical spinal cord demonstrates normal caliber and signal. The visualized posterior fossa jermaine nts appear unremarkable. The craniocervical junction is within normal limits. The vertebral body heig hts and bone marrow signal are appropriate. The sagittal alignment is anatomic. The disc heights satnam ear maintained. At C2-C3, C3-C4 and C4-C5 there is no significant disc herniation. There is no spinal canal or neurof oraminal stenosis. At C5-C6 there is mild disc bulge flattening the ventral thecal sac without canal or neural foraminal stenosis. At C6-C7 there is mild disc bulge flattening the ventral thecal sac without canal or significant fora uriah stenosis. At C7-T1 there is no significant disc herniation. There is no spinal canal or neuroforaminal stenosis . IMPRESSION: 1. Mild disc bulges at C5-C6 and C6-C7. There is no spinal canal or significant foraminal stenosis. HS:Y
[2024-07-15] MEDS: KETOROLAC TROMETH 30 MG/ML 1ML VIAL IV SCH (17:54)
[2024-07-15] MEDS: ACETAMINOPHEN 325 MG TAB PO SCH (21:32)
[2024-07-15] MEDS: GABAPENTIN 300 MG CAP PO SCH (21:32)
[2024-07-16] VITALS (7 sets, daily range): BP systolic 112–126; BP diastolic 53–72; PULSE 57–70; RESP 15–20; TEMP 97.6–98.1; O2SAT 94–99
[2024-07-16 08:00] LABS: Basophils # (auto) 0 10 ^3/uL (0-0.2); Basophils % (auto) 0.2 % (0.0-2.0); Eosinophils # (auto) 0 10 ^3/uL (0-0.8); Hematocrit 44.6 % (41.0-53.0); Hemoglobin 15.1 g/dL (13.5-17.5); Lymphocytes # (auto) 0.8 10 ^3/uL (0.4-5.4); Mean Corpuscular Hemoglobin 29.5 pg (28.0-32.0); Mean Corpuscular Hgb Conc. 33.8 g/dL (32.0-36.0); Mean Corpuscular Volume 87.4 fL (80.0-100.0); Monocytes # (auto) 0.3 10 ^3/uL (0-1.3); Monocytes % (auto) 2.1 % (0.0-12.0); Neutrophils # (auto) 10.9 10 ^3/uL (1.6-8.6); Neutrophils % (auto) 90.7 % (37.0-80.0); Platelet Count (auto) 230 10^3/uL (140-450); Red Cell Distribution Width 13.5 % (11.8-14.3)
[2024-07-16 08:13] LABS: Chloride 102 mmol/L (98-107); Potassium 4.9 mmol/L (3.5-5.1); Sodium 137 mmol/L (136-145)
[2024-07-16 08:14] LABS: Anion Gap 5 (5-15); Carbon Dioxide 30 mmol/L (20-31)
[2024-07-16 08:19] LABS: BUN/Creatinine Ratio 22.1 (10.0-20.0); Blood Urea Nitrogen 17 mg/dL (9-23)
[2024-07-16 08:21] LABS: Glucose 159 mg/dL (74-106)
--- NOTE | 2024-07-16 11:54 | DVHINCON2 ---
Consultation - Spinal Surgery Date Seen: Jul 16, 2024 Referring Physician Reason for Consultation Low back pain, pain with ambulation History of Present Illness History of Present Illness Reason for Visit: Intractable pain History of Present Illness 48-year-old obese patient with complaints of back pain patient has a longstanding history of back pain was recommended from the ED to be admitted for further back pain in evaluation and management no acute imaging is noted no acute labs at this point in time under the impression that the patient is being admitted for intractable pain at this point we will admit and do a full workup Past Medical/Surgical History Past Medical/Surgical History Cardiovascular: HTN Family and Social History Family and Social History noncontributory Allergies and medications Allergies: Coded Allergies: NO KNOWN ALLERGIES (Unverified , 04/08/23) Home Meds Active Scripts Hydrocodone-Acetaminophen (Hydrocodone Bitartrate/AC 5-325 mg) 1 Tab Tab, 1 TAB PO DAILY for 7 Days, #7 TAB Prov:ANA CASTANO MD 07/12/24 Prednisone (Prednisone) 10 Mg Tab, 10 MG PO DAILY for 7 Days, #7 MG Prov:ANA CASTANO MD 07/12/24 Dicyclomine Hcl (BENTYL CAPSULE) 10 Mg Cp, 1 CAP PO Q6HPRN, #20 CAP 0 Refills Prov:BHARATH WHITE 07/09/24 Cyclobenzaprine Hcl (Cyclobenzaprine Hcl) 5 Mg Tab, 1 TAB PO QHSP, #14 TAB 0 Refills Prov:VICTOR HUGO ALVARADO 07/09/24 Ibuprofen (Ibuprofen) 800 Mg Tab, 1 TAB PO TID PRN, #30 TAB 0 Refills Prov:VICTOR HUGO ALVARADO 07/09/24 Ibuprofen Micronized (MOTRIN TABLET) 600 Mg Tb, 600 MG PO TID PRN for 10 Days, #30 TAB *Black box warning-NSAIDS can increase risk of [place] & hypertension, GI irritation, ulceration, bleed, perferation. Do not use post cardiac surgery. Use short duration/lowest effective dose. Prov:SHERRY CABALLERO MD 06/16/24 Cyclobenzaprine HCl (Cyclobenzaprine Hydrochlo) 10 Mg Tab, 10 MG PO TIDPRN PRN for 10 Days, #30 TAB Prov:SHERRY CABALLERO MD 06/16/24 Review of systems Review of Systems: HEENT:Normal, CVS:Normal, RESPIRATORY:Normal, GI:Normal, :Normal, MSK:Normal, NEURO:Normal Examination Vital signs Imaging studies: PROCEDURE(s): MNE - CERVICAL WO CONTRAST REASON: [facility] spine surgeon ORDER NUMBER(s): [id number], ACCESSION NUMBER(s): [id number] MRI CERVICAL SPINE CLINICAL HISTORY: [facility] spine surgeon Comparison: MRI LUMBAR SPINE WO CONTRAST on DOS: 07/15/24 Technique: Multi planar, multi sequence MR images of the cervical spine without intravenous contrast. FINDINGS: The cervical spinal cord demonstrates normal caliber and signal. The visualized posterior fossa contents appear unremarkable. The craniocervical junction is within normal limits. The vertebral body heights and bone marrow signal are appropriate. The sagittal alignment is anatomic. The disc heights appear maintained. At C2-C3, C3-C4 and C4-C5 there is no significant disc herniation. There is no spinal canal or neuroforaminal stenosis. At C5-C6 there is mild disc bulge flattening the ventral thecal sac without canal or neural foraminal stenosis. At C6-C7 there is mild disc bulge flattening the ventral thecal sac without canal or significant foraminal stenosis. At C7-T1 there is no significant disc herniation. There is no spinal canal or neuroforaminal stenosis. IMPRESSION: 1. Mild disc bulges at C5-C6 and C6-C7. There is no spinal canal or significant foraminal stenosis PROCEDURE(s): MSL - LUMBAR SPINE WO CONTRAST REASON: pain/ pinch nerve ORDER NUMBER(s): [id number], ACCESSION NUMBER(s): [id number] MRI LUMBAR SPINE CLINICAL HISTORY: pain/ pinch nerve TECHNIQUE: Multi planar, multi sequence MR images of the lumbar spine without intravenous contrast. Comparison: CT LS SPINE WO CONTRAST on DOS: 06/03/23 FINDINGS: The conus terminates at an appropriate level and demonstrates normal caliber and signal. The lumbar vertebral body heights are maintained. There is decreased T1 marrow signal throughout which May relate to red marrow hyperplasia.. There is mild straightening of the lumbar lordosis. There is disc desiccation with disc space narrowing at L4-L5 and L5-S1. The paraspinal soft tissues appear within normal limits. At L1-L2 and L2-L3 there is no significant disc herniation. There is no canal or foraminal stenosis. At L3-L4 there is mild disc bulge eccentric to the left. There is no canal stenosis. There is mild left neural foraminal narrowing. At L4-L5 there is diffuse disc bulge flattening of the ventral thecal sac without canal stenosis. There is mild right neural foraminal narrowing. At L5-S1 there is disc bulge with central annular fissure. There is no canal stenosis. There is mild bilateral neural foraminal narrowing. IMPRESSION: 1. Degenerative changes in the lower lumbar spine as described by levels above. There is no spinal canal stenosis. There is mild neural foraminal narrowing at multiple levels. 2. The lumbar vertebral bodies demonstrate diffusely decreased marrow signal which May relate to red marrow hyperplasia. Clinical correlation is recommended. Vital Signs Date Time Temp Pulse Resp B/P (MAP) Pulse Ox O2 Delivery O2 Flow Rate FiO2 07/16/24 09:00 98.1 58 18 124/72 (89) 95 98.1 07/16/24 08:15 Room Air* 0 21 Medications Current Medications Medications (Trade) Dose Ordered Sig/Christofer Route PRN Reason Start Time Stop Time Status Last Admin Morphine Sulfate 4 mg Q4HPRN PRN IV SEVERE PAIN (7-10 PAIN SCALE) 07/15/24 15:30 Acetaminophen (Tylenol Tablet) 650 mg Q8HR PO 07/15/24 22:00 07/16/24 06:18 Ketorolac Tromethamine (Toradol Injection) 15 mg Q6HR IV 07/15/24 18:00 07/20/24 17:59 07/16/24 06:17 Gabapentin (Neurontin Capsule) 300 mg TID PO 07/15/24 22:00 07/16/24 06:18 Dexamethasone Sodium Phosphate (Decadron Injection) 10 mg Q8HR IV 07/15/24 15:45 07/16/24 06:17 Laboratory Labs Test 07/16/24 07:30 07/15/24 11:00 Range/Units White Blood Count 12.0 #H 4.4-10.8 10^3/uL Red Blood Count 5.10 4.5-5.90 10^6/uL Hemoglobin 15.1 13.5-17.5 g/dL Hematocrit 44.6 41.0-53.0 % Mean Corpuscular Volume 87.4 80.0-100.0 fL Mean Corpuscular Hemoglobin 29.5 28.0-32.0 pg Mean Corpuscular Hemoglobin Concent 33.8 32.0-36.0 g/dL Red Cell Distribution Width 13.5 11.8-14.3 % Platelet Count 230 # 140-450 10^3/uL Mean Platelet Volume 6.5 L 6.9-10.8 fL Neutrophils (%) (Auto) 90.7 H 37.0-80.0 % Lymphocytes (%) (Auto) 7.0 L 10.0-50.0 % Monocytes (%) (Auto) 2.1 0.0-12.0 % Eosinophils (%) (Auto) 0.0 0.0-7.0 % Basophils (%) (Auto) 0.2 0.0-2.0 % Neutrophils # (Auto) 10.9 H 1.6-8.6 10 ^3/uL Lymphocytes # (Auto) 0.8 0.4-5.4 10 ^3/uL Monocytes # (Auto) 0.3 0-1.3 10 ^3/uL Eosinophils # (Auto) 0 0-0.8 10 ^3/uL Basophils # (Auto) 0 0-0.2 10 ^3/uL Nucleated Red Blood Cells 0.0 % Sodium Level 137 136-145 mmol/L Potassium Level 4.9 3.5-5.1 mmol/L Chloride Level 102 98-107 mmol/L Carbon Dioxide Level 30 20-31 mmol/L Anion Gap 5 5-15 Blood Urea Nitrogen 17 9-23 mg/dL Creatinine 0.77 0.700-1.30 mg/dL Glomerular Filtration Rate Calc 111 >90 mL/min BUN/Creatinine Ratio 22.1 H 10.0-20.0 Serum Glucose 159 H 74-106 mg/dL Calcium Level 10.0 8.7-10.4 mg/dL Urine Color Colorless Yellow Urine Clarity Turbid H Clear Urine pH 6.0 5.0-9.0 Urine Specific [place] 1.013 1.001-1.035 Urine Protein Negative Negative Urine Ketones Negative Negative Urine Blood 1+ H Negative /uL Urine Nitrite Negative Negative Urine Bilirubin Negative Negative Urine Urobilinogen Normal Negative mg/dL Urine Leukocyte Esterase 1+ Negative /uL Urine RBC 4 0 - 3 /hpf Urine WBC 18 0 - 3 /hpf Urine Squamous Epithelial Cells None seen <5 /hpf Urine Bacteria Few H None Seen /hpf Urine Glucose Normal Normal mg/dL Examination: GENERAL:Normal, HEENT:Normal, NECK:Normal, LUNGS:Normal, CVS:Normal, ABDOMEN:Normal, MSK:Normal, SKIN:Normal, NEURO:Normal (Patient states that he was in an accident a few years ago that initially started his low back pain. Currently has 5/5 muscle strength to all extremities, he does state that he does have low back pain when he gets up and walks. Patient has no complaints of any neck pain shoulder pain or any dizziness or headaches. No drug counselor strength loss bilaterally to upper extremities.), :Normal, Any Other System: Problem List/Assessment/Plan Problems: (1) DDD (degenerative disc disease), lumbar (2) Chronic low back pain (3) Acute exacerbation of chronic low back pain Assessment and Plan 1. Lumbar: Patient does have degenerative disc disease to the lumbar spine with mild narrowing. He has foraminal stenosis in the lumbar spine. This can be handled on an outpatient basis. Patient demonstrating no leg weakness Recommended treatment for the lumbar stenosis would be pain medication, muscle relaxers and physical therapy. Follow up for further evaluation physical therapy, pain management and consideration for possible surgery on an outpatient basis. 2. Cervical: Patient's MRI was reviewed of the C-spine starting at level C3- C-7 it appears the patient has cervical stenosis causing myeloradiculopathies. 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 This is present at levels C4 through 7, however this does not agree with the radiology read. At this time the patient is not demonstrating leg weakness, at this time he is not willing to consider cervical spine surgery. At this time or wound the patient like to consider conservative treatment 1st. Patient states that he has having no loss of any strength of his hands he has normal range of motion, no headaches no shoulder pain no dizziness. Patient states that he feels his lumbar area is more painful at this time. Discussion of all conservative management options through the surgical process was discussed, all questions answered. At this time the patient feels up both matters could be handled with conservative management initially. With his lumbar being addressed 1st. Patient is cleared to discharge once he is able to get his muscle spasm under control and ambulate. Patient may follow up as an outpatient. Call [phone] for a appointment [id number] [address], [address], [facility] [address] Continue supportive measures per admitting team's discretion Physical therapy evaluation and treatment recommendations Scheduled muscle relaxer medication Analgesia pain medication per admitting team's discretion Call with questions Jermaine Malik [facility] Orthopaedic Spine Surgery nurse practitioner For Dr Leonardo Brian - for staff use only Patient was examined, chart reviewed, labs evaluated, and diagnostic studies and findings analyzed. Case was discussed with Dr. Caleb Brian who formulated the plan of care. This medical document was created using an electronic medical record system with Rep dictation system. Although this document has been carefully reviewed, there might still be some phonetic and typographical errors. These areas are purely typographical due to imperfections of the software programs, and do not reflect any compromise in the patient's medical care. Plan discussed with Plan discussed with: Patient, Other (Laly CHANDLER) JONAS MALIK NP Jul 16, 2024 11:54
[2024-07-16] MEDS ORDERED: KETOROLAC TROMETH 30 MG/ML 1ML VIAL IV PRN ×2 (14:30→14:45)
--- NOTE | 2024-07-16 14:31 | DVHPN2 ---
Assessment/Plan Assessment/Plan Progress note Subjective 48 M with chronic LBP with acute onset worsening pain, on my exam SLR positive with weakness and gait disturbance. Seen by me today during rounds Pain improving, able to ambulate. pending PT eval Objective Physical exam Alert, oriented x3 PERRLA Looks uncomfortable Clear breath sounds bilaterally S1-S2 regular rate and rhythm no murmur Abdomen soft nontender, no organomegaly mild paraspinal tenderness Weak gait when trying to stand up Equal and decreased strength bilaterally on lower extremity No lower extremity edema SLR positive severe pain on passive flexion and extension of b/l hip radiating to groin Lab wnl Imaging MRI L-spine 1. Degenerative changes in the lower lumbar spine as described by levels above. There is no spinal canal stenosis. There is mild neural foraminal narrowing at multiple levels. 2. The lumbar vertebral bodies demonstrate diffusely decreased marrow signal which May relate to red marrow hyperplasia. Clinical correlation is recommended. MRI C spine different read by rad and ortho spine Assessment and plan Acute on chronic low back pain mild neural foraminal narrowing on multiple level cervical stenosis causing myeloradiculopathies spine consulo appreciated tylenol chrissie, toradol morphine PRN gabapentin 300 TID dexa 10 Q8 flexeril 5 TID PT eval Replete electrolytes Diet regular DVT prophylaxis hold Plan discussed with: Patient My Orders Orders - SHERRY CABALLERO MD Procedure Category Date Status Time Morphine Sulfate PHA 07/15/24 In Process Injection 15:30 Acetaminophen Tablet PHA 07/15/24 In Process (Tylenol Tablet) 22:00 Ketorolac Injection PHA 07/15/24 In Process (Toradol Injection) 18:00 Gabapentin Capsule PHA 07/15/24 In Process (Neurontin Capsule) 22:[address] Caleb CONS 07/15/24 Transmitted [place](Spine) 15:24 Cervical Wo Contrast MRI 07/15/24 Resulted 15:29 Dexamethasone PHA 07/15/24 In Process Injection (Decadron 15:45 Date of Service: Jul 16, 2024 Billing Provider: SHERRY CABALLERO MD Common Visit Codes: [id number] INP/OBS CARE(HIGH) SHERRY CABALLERO MD Jul 16, 2024 14:31
[2024-07-16] MEDS ORDERED: CYCLOBENZAPRINE HCL 10 MG TAB PO PRN (21:45)
[2024-07-16] MEDS ORDERED: CYCLOBENZAPRINE HCL 10 MG TAB PO SCH (22:00)
[2024-07-17 01:00] VITALS: BP 114/46; PULSE 71; RESP 16; TEMP 97.6; O2SAT 95
[2024-07-17 04:47] VITALS: BP 142/75; PULSE 88; RESP 15; TEMP 97.2; O2SAT 96
[2024-07-17 09:00] VITALS: BP 132/83; PULSE 73; RESP 16; TEMP 98.6; O2SAT 97
[2024-07-17] MEDS ORDERED: GABA-1250 PO (12:15)
[2024-07-17] MEDS ORDERED: METH4PAK PO (12:15)
[2024-07-17] MEDS ORDERED: CYCL-611 PO (12:15)
[2024-07-17] MEDS ORDERED: ACET-1882 PO (12:15)
--- NOTE | 2024-07-17 12:17 | DVHDS2 ---
Discharge Summary Date of Admission Jul 14, 2024 at 14:27 Date of Discharge: Jul 17, 2024 Labs/Diagnostic Data: Laboratory Results Test 07/16/24 07:30 07/15/24 11:00 White Blood Count 12.0 10^3/uL (4.4-10.8) Red Blood Count 5.10 10^6/uL (4.5-5.90) Hemoglobin 15.1 g/dL (13.5-17.5) Hematocrit 44.6 % (41.0-53.0) Mean Corpuscular Volume 87.4 fL (80.0-100.0) Mean Corpuscular Hemoglobin 29.5 pg (28.0-32.0) Mean Corpuscular Hemoglobin Concent 33.8 g/dL (32.0-36.0) Red Cell Distribution Width 13.5 % (11.8-14.3) Platelet Count 230 10^3/uL (140-450) Mean Platelet Volume 6.5 fL (6.9-10.8) Neutrophils (%) (Auto) 90.7 % (37.0-80.0) Lymphocytes (%) (Auto) 7.0 % (10.0-50.0) Monocytes (%) (Auto) 2.1 % (0.0-12.0) Eosinophils (%) (Auto) 0.0 % (0.0-7.0) Basophils (%) (Auto) 0.2 % (0.0-2.0) Neutrophils # (Auto) 10.9 10 ^3/uL (1.6-8.6) Lymphocytes # (Auto) 0.8 10 ^3/uL (0.4-5.4) Monocytes # (Auto) 0.3 10 ^3/uL (0-1.3) Eosinophils # (Auto) 0 10 ^3/uL (0-0.8) Basophils # (Auto) 0 10 ^3/uL (0-0.2) Nucleated Red Blood Cells 0.0 % Sodium Level 137 mmol/L (136-145) Potassium Level 4.9 mmol/L (3.5-5.1) Chloride Level 102 mmol/L (98-107) Carbon Dioxide Level 30 mmol/L (20-31) Anion Gap 5 (5-15) Blood Urea Nitrogen 17 mg/dL (9-23) Creatinine 0.77 mg/dL (0.700-1.30) Glomerular Filtration Rate Calc 111 mL/min (>90) BUN/Creatinine Ratio 22.1 (10.0-20.0) Serum Glucose 159 mg/dL (74-106) Calcium Level 10.0 mg/dL (8.7-10.4) Urine Color Colorless (Yellow) Urine Clarity Turbid (Clear) Urine pH 6.0 (5.0-9.0) Urine Specific [place] 1.013 (1.001-1.035) Urine Protein Negative (Negative) Urine Ketones Negative (Negative) Urine Blood 1+ /uL (Negative) Urine Nitrite Negative (Negative) Urine Bilirubin Negative (Negative) Urine Urobilinogen Normal mg/dL (Negative) Urine Leukocyte Esterase 1+ /uL (Negative) Urine RBC 4 /hpf (0 - 3) Urine WBC 18 /hpf (0 - 3) Urine Squamous Epithelial Cells None seen /hpf (<5) Urine Bacteria Few /hpf (None Seen) Urine Glucose Normal mg/dL (Normal) Other Laboratory Tests 07/16/24 07:30 Brief Hx & Hospital Course: 48 yo M with chronic LBP admitted for worsening LBP, on my assessment patient has unsteady gait and difficulty standing up, MRI L and C spine done, started on decadron, flexeril and pain management, patient was seen by spine ortho and PT. Patient would like conservative management, discharged with follow up with spine and discharge clinic appointment. significant improvement after decadron. Condition at Discharge: Good Final Diagnosis/Problems List acute on chronic LBP spinal canal narrowing Discharge Disposition: Home Discharge Instruct/Medications Diet: Regular Activity: No Restrictions, As Tolerated Follow Up/Referral: spine orthopedic surgery DC clinic in 1 week Medications: tylenol motrin flexeril medrol dosepak 45 Discharge Statement: "Patient was advised to return to the ER or call 911 if any headaches, dizziness, shortness of breath, chest pain, abdominal pain, bleeding, fevers, or worsening of medical condition. Patient was counseled about treatment plan, medications, possible side effects, patientverbalized understanding. All questions were answered to the best of my ability. This discharge took greater then 30 minutes in planning, reviewing documentation, counseling the patient, and discussing with other team members." ASSESSMENT ASSESSMENT Assessment Acute on chronic low back pain mild neural foraminal narrowing on multiple level cervical stenosis causing myeloradiculopathies Date of Service: Jul 17, 2024 Billing Provider: HSERRY CABALLERO MD Common Visit Codes: 03417-DIM/OBS DISCH DAY >30min SHERRY CABALLERO MD Jul 17, 2024 12:17
[2024-07-17 13:00] VITALS: BP 127/75; PULSE 63; RESP 16; TEMP 97.5; O2SAT 96
== END 2024-07-17 15:00 | disposition home or self-care (01) | DRG 347 ==
LOC: ER 09:12 → OVERFLOW 14:27 → WEST WING 23:59
PROVIDERS: ADMIT Hospitalist; ATTEND Student in an Organized Health Care Education/Training Program
DX: M48.02 Spinal stenosis, cervical region (principal); G99.2 Myelopathy in diseases classified elsewhere; M54.12 Radiculopathy, cervical region; M47.816 Spondylosis without myelopathy or radiculopathy, lumbar region; E66.9 Obesity, unspecified; M62.838 Other muscle spasm; G89.29 Other chronic pain; Z79.891 Long term (current) use of opiate analgesic; Z79.899 Other long term (current) drug therapy; Z79.1 Long term (current) use of non-steroidal anti-inflammatories (NSAID)
CPT/HCPCS: 36415; 72110; 72141; 72148; 80048; 81001; 85025; 97163; G0378; J1100; J1885

== ENCOUNTER 2024-08-03 05:49 | Emergency (ER) | payer MEDICAID ==
[~2024-08-03] VITALS: Ht 175.3 cm; Wt 79.1 kg
[~2024-08-03 05:49] MED LIST changes: +ACET-1882 PO; -CYCL-837 PO; -DICY10CA PO; +GABA-1250 PO; -HYDR-4902 PO; -IBUP-1456 PO; +METH4PAK PO; -PRED10TA PO
[2024-08-03 07:26] VITALS: BP 146/90; PULSE 95; RESP 16; TEMP 97.7; O2SAT 95
--- NOTE | 2024-08-03 07:32 | ED.PDOC ---
Back pain HPI HPI Comments 48 yo M with chronic LBP admitted for worsening LBP recently Presents for same symptoms Apt: Aug 20 with Ortho Medications rx not helping much Pain rated moderate No other complaint Chief Complaint: Back Pain Time Seen by MD: 07:26 Primary Care Provider: UNKNOWN Reviewed Notes: Nurses Notes, Medications, Allergies Allergies: Coded Allergies: NO KNOWN ALLERGIES (Unverified , 04/08/23) Home Meds Active Scripts Prednisone (Prednisone) 20 Mg Tab, 40 MG PO DAILY for 5 Days, #10 TAB 0 Refills Prov:LUCY FIELD DYE CAN OPERATOR 08/03/24 Promethazine-Dm (Promethazine Dm 6.25-15 mg/5Ml) 1 Josselin Josselin, 5 ML PO TID for 10 Days, #150 ML 0 Refills Prov:LUCY FIELD DYE CAN OPERATOR 08/03/24 Methylprednisolone (Medrol Dosepak) 4 Mg Jefry, 4 MG PO UD for 7 Days, #21 TAB UAD Prov:SHERRY CABALLERO MD 07/17/24 Gabapentin (Gabapentin) 300 Mg Cap, 300 MG PO TID for 30 Days, #90 CAP Prov:SHERRY CABALLERO MD 07/17/24 Cyclobenzaprine HCl (Cyclobenzaprine Hydrochlo) 10 Mg Tab, 10 MG PO Q8HPRN PRN for 20 Days, #60 TAB Prov:SHERRY CABALLERO MD 07/17/24 Acetaminophen (Acetaminophen) 325 Mg Tab, 650 MG PO Q8HR for 20 Days, #120 TAB Prov:SHERRY CABALLERO MD 07/17/24 Ibuprofen Micronized (MOTRIN TABLET) 600 Mg Tb, 600 MG PO TID PRN for 10 Days, #30 TAB *Black box warning-NSAIDS can increase risk of [place] & hypertension, GI irritation, ulceration, bleed, perferation. Do not use post cardiac surgery. Use short duration/lowest effective dose. Prov:SHERRY CABALLERO MD 06/16/24 Cyclobenzaprine HCl (Cyclobenzaprine Hydrochlo) 10 Mg Tab, 10 MG PO TIDPRN PRN for 10 Days, #30 TAB Prov:SHERRY CABALLERO MD 06/16/24 Information Source: Patient Mode of Arrival: Ambulatory Past Medical History PAST MEDICAL HISTORY: Denies Surgical History: Appendectomy Family History Family History: Reviewed,noncontributory to illness, Unknown Social History Smoker: Unknown Alcohol: Unknown Drugs: Unknown Lives In: Home All Other Systems: Reviewed and Negative (per hpi) Physical Exam General Appearance: No Apparent Distress, Normal HEENT: Normal ENT Inspection, Pharynx Normal, TMs Normal Neck: Full Range of Motion, Non-Tender, Normal, Normal Inspection Respiratory: Chest Non-Tender, Lungs Clear, No Accessory Muscle Use, No Respiratory Distress, Normal Breath Sounds Cardiovascular: No Edema, No JVD, No Murmur, No Gallop, Normal Peripheral Pulses, Regular Rate/Rhythm Breast Exam: Deferred Gastrointestinal: No Organomegaly, Non Tender, No Pulsatile Mass, Normal Bowel Sounds, Soft Genitalia: Deferred Pelvic: Deferred Rectal: Deferred Extremities: No calf tenderness, Normal capillary refill, Normal inspection, Normal range of motion, Non-tender, No pedal edema Musculoskeletal : Apperance: Normal Neurologic: Alert, regional sales engineer II-XII nml as Tested, No Motor Deficits, Normal Affect, Normal Mood, No Sensory Deficits Cerebellar Function: Normal Reflexes: Normal Skin: Dry, Normal Color, Warm Lymphatic: No Adenopathy Was a procedure done? Was a procedure done?: No Images 1 - No gross abnormality on inspection. No midline tenderness. Localized lumbosacral paraspinal tenderness to palpation. Full forward flexion-extension and lateral movements Back Pain Differential Dx Differential Diagnosis: Musculoskeletal Pain, Other X-Ray, Labs, Meds, VS Vital Signs Date Time Temp Pulse Resp B/P (MAP) Pulse Ox O2 Delivery O2 Flow Rate FiO2 08/03/24 07:26 97.7 95 16 146/90 (108) 95 97.7 08/03/24 07:26 95 16 95 Room Air 08/03/24 06:02 97.7 95 16 146/90 (108) 95 Current Medications Medications (Trade) Dose Ordered Sig/Christofer Route Start Time Stop Time Status Last Admin Ketorolac Tromethamine (Toradol Injection) 30 mg ONCE ONCE IM 08/03/24 07:45 08/03/24 07:46 DC 08/03/24 07:53 Methylprednisolone Sodium Succinate (Solu Medrol) 125 mg ONCE ONCE IM 08/03/24 07:45 08/03/24 07:46 DC 08/03/24 07:53 X-Ray, Labs, Meds, VS Comment ROS physical examination there were no red flags. Patient has a history has Acute on chronic low back pain mild neural foraminal narrowing on multiple level cervical stenosis causing myeloradiculopathies On reevaluation, patient had symptomatic improvement. Patient is stable for discharge at this time. External notes reviewed. Test results and diagnostic imaging interpreted. All diagnostic findings, discharge care, education and instructions provided Follow-up with PCP in 2 to 3 days Patient verbalized understanding and agreed to treatment plan Vital signs stable, afebrile, no acute distress noted Patient ambulatory with strong steady gait Advised to return precautions for any new or worsening symptoms, return to ER immediately for re-evaluation Patient is aware that the purpose of this visit was for an acute medical emergency requiring emergent stabilization. Chronic conditions, including malignancies have not been ruled out. Patient is instructed to follow up with PCP as directed and discharge instructions for continued care and workup. If unable to arrange follow-up, patient is to return to the emergency department for reassessment. Patient (parent or legal guardian if applicable) was given verbal and written discharge instructions and acknowledges understanding. Time of 1ST Reevaluation: 08:00 Reevaluation 1ST: Improved Patient Education/Counseling: Diagnosis, Treatment Family Education/Counseling: Diagnosis, Treatment Departure 1 Departure Time of Disposition: 08:13 Impression: Primary Impression: Chronic low back pain Qualified Codes: M54.50 - Low back pain, unspecified; G89.29 - Other chronic pain Disposition: 01 HOME / SELF CARE / HOMELESS Condition: Stable e-Prescriptions Prednisone (Prednisone) 20 Mg Tab 40 MG PO DAILY for 5 Days, #10 TAB 0 Refills Prov: LUCY FIELD NP 08/03/24 Promethazine-Dm (Promethazine Dm 6.25-15 mg/5Ml) 1 Josselin Josselin 5 ML PO TID for 10 Days, #150 ML 0 Refills Prov: LUCY FIELD NP 08/03/24 Discharged With: Self Critical Care Note Critical Care Time?: No Stability Stability form required: No Heart Score Heart Score: Heart Score Response (Comments) Value History N/A 0 EKG N/A 0 Age N/A 0 Risk Factors N/A 0 Troponin N/A 0 Total 0 LUYC FIELD NP Aug 03, 2024 07:32
[2024-08-03] MEDS: KETOROLAC TROMETH 30 MG/ML 1ML VIAL IM ONE (07:53)
[2024-08-03] MEDS: methylPREDNISolone SOD SUCC 125 MG/2 ML VL IM ONE (07:53)
[2024-08-03] MEDS ORDERED: PROM1SOL4 PO (08:14)
[2024-08-03] MEDS ORDERED: PRED20TA2 PO (08:14)
== END 2024-08-03 08:38 | disposition home or self-care (01) ==
LOC: ER 05:49
DX: M54.50 Low back pain, unspecified (principal); G89.29 Other chronic pain; Z79.899 Other long term (current) drug therapy; Z90.89 Acquired absence of other organs
CPT/HCPCS: 96372; 99284; J1885; J2919

== ENCOUNTER 2024-08-07 08:23 | Emergency (ER) | payer MEDICAID ==
[~2024-08-07] VITALS: Ht 175.3 cm; Wt 75.9 kg
[~2024-08-07 08:23] MED LIST changes: +PRED20TA2 PO; +PROM1SOL4 PO
[2024-08-07] MEDS ORDERED: IBUP-1456 PO (09:21)
[2024-08-07] MEDS ORDERED: PROM1SOL4 PO (09:21)
[2024-08-07] MEDS ORDERED: BACL10TA PO (09:21)
--- NOTE | 2024-08-07 09:23 | ED.PDOC ---
Back pain HPI HPI Comments A 48 YEAR OLD MALE PRESENTS TO THE ED WITH CHIEF COMPLAINT OF BACK PAIN. PATIENT REPORTS THAT HE HAS BEEN EXPERIENCING LOWER BACK PAIN SINCE A MONTH AGO. PATIENT RELAYS THAT HE HAS BEEN SEEN BEFORE FOR IT AND HAS HAD IMAGING STUDIES PERFORMED FOR HIS BACK AND DIAGNOSED DDD OF LOW BACK. PATIENT STATES HE IS OUT OF PAIN ME DICATION FOR IT AND NEEDS A PRESCRIPTION. ALSO, PT REQUESTS COUGH MEDICATION DUE TO COUGH CAUSED LOW BACK PAIN. PATIENT DENIES ANY NUMBNESS, WEAKNESS, NECK PAIN, HEADACHE, FALL, OR INJURY. NO OTHER SYMPTOMS REPORTED AT THIS TIME OF CARE. Chief Complaint: Back Pain Time Seen by MD: 09:34 Primary Care Provider: UNKNOWN Reviewed Notes: Nurses Notes, Medications, Allergies Allergies: Coded Allergies: NO KNOWN ALLERGIES (Unverified , 04/08/23) Home Meds Active Scripts Promethazine-Dm (Promethazine Dm 6.25-15 mg/5Ml) 1 Josselin Josselin, 5 ML PO TID, #150 ML Prov:SHINE BALBUENA 08/07/24 Baclofen (Baclofen) 10 Mg Tab, 10 MG PO BID, #20 TAB Prov:SHINE BALBUENA 08/07/24 Ibuprofen (Ibuprofen) 800 Mg Tab, 1 TAB PO TID, #30 TAB Prov:SHINE BALBUENA 08/07/24 Prednisone (Prednisone) 20 Mg Tab, 40 MG PO DAILY for 5 Days, #10 TAB 0 Refills Prov:LUCY FIELD DRY ICE MACHINE OPERATOR 08/03/24 Promethazine-Dm (Promethazine Dm 6.25-15 mg/5Ml) 1 Josselin Josselin, 5 ML PO TID for 10 Days, #150 ML 0 Refills Prov:LUCY FIELD NP 08/03/24 Methylprednisolone (Medrol Dosepak) 4 Mg Jefry, 4 MG PO UD for 7 Days, #21 TAB UAD Prov:SHERRY CABALLERO MD 07/17/24 Gabapentin (Gabapentin) 300 Mg Cap, 300 MG PO TID for 30 Days, #90 CAP Prov:SHERRY CABALLERO MD 07/17/24 Cyclobenzaprine HCl (Cyclobenzaprine Hydrochlo) 10 Mg Tab, 10 MG PO Q8HPRN PRN for 20 Days, #60 TAB Prov:SHERRY CABALLERO MD 07/17/24 Acetaminophen (Acetaminophen) 325 Mg Tab, 650 MG PO Q8HR for 20 Days, #120 TAB Prov:SHERRY CABALLERO MD 07/17/24 Ibuprofen Micronized (MOTRIN TABLET) 600 Mg Tb, 600 MG PO TID PRN for 10 Days, #30 TAB *Black box warning-NSAIDS can increase risk of [place] & hypertension, GI irritation, ulceration, bleed, perferation. Do not use post cardiac surgery. Use short duration/lowest effective dose. Prov:SHERRY CABALLERO MD 06/16/24 Cyclobenzaprine HCl (Cyclobenzaprine Hydrochlo) 10 Mg Tab, 10 MG PO TIDPRN PRN for 10 Days, #30 TAB Prov:SHERRY CABALLERO MD 06/16/24 Information Source: Patient Mode of Arrival: Ambulatory Timing: Weeks Duration: Since onset Location of Back pain: (B) Lower back Severity: Moderate Prehospital treatment: None Quality: Aching Onset: Spontaneous History of: Chronic Back Pain Modifying Factors: Nothing Associated signs and symptoms: None Past Medical History Past Medical History (Other): CHRONIC LOWER BACK PAIN Surgical History: Appendectomy Family History Family History: Reviewed,noncontributory to illness, Unknown Social History Smoker: Non-Smoker Alcohol: Denies ETOH Use Drugs: Denies Drug Use Lives In: Home Constitutional: denies: chills, diaphoresis, fatigue, fever, malaise, sweats, weakness, others EENTM: denies: blurred vision, double vision, ear bleeding, ear discharge, ear drainage, ear pain, ear ringing, eye pain, eye redness, hearing loss, mouth pain, mouth swelling, nasal discharge, nose bleeding, nose congestion, nose pain, photophobia, tearing, throat pain, throat swelling, voice changes, others Respiratory: denies: cough, hemoptysis, orthopnea, SOB at rest, shortness of breath, SOB with excertion, stridor, wheezing, others Cardiovascular: denies: chest pain, dizzy spells, diaphoresis, Dyspnea on exertion, edema, irregular heart beat, left arm pain, lightheadedness, palpitations, PND, syncope, others Gastrointestinal: denies: abdomen distended, abdominal pain, blood streaked bowels, constipated, diarrhea, dysphagia, difficulty swallowing, hematemesis, melena, nausea, poor appetite, poor fluid intake, rectal bleeding, rectal pain, vomiting, others Genitourinary: denies: burning, dysuria, flank pain, frequency, hematuria, incontinence, penile discharge, penile sore, pain, testicle pain, testicle swelling, urgency, others Neurological: denies: dizziness, fainting, headache, left sided numbness, left sided weakness, numbness, paresthesia, pre-existing deficit, right sided nu mbness, right sided weakness, seizure, speech problems, tingling, tremors, weakness, others Musculoskeletal: reports: back pain, muscle pain; denies: gout, joint pain, joint swelling, muscle stiffness, neck pain, others Integumetry: denies: bruises, change in color, change in hair/nails, dryness, laceration, lesions, lumps, rash, wounds, others Allergic/Immunocompromised: denies: Difficulty Healing, Frequent Infections, Hives, Itching, others Hematologic/Lymphatic: denies: anemia, blood clots, easy bleeding, easy bruising, swollen glands, others Endocrine: denies: excessive hunger, excessive sweating, excessive thirst, excessive urination, flushing, intolerance to cold, intolerance to heat, unexplained weight gain, unexplained weight loss, others Psychiatric: denies: anxiety, bipolar disorder, depression, hopeless, panic disorder, schizophrenia, sleepless, suicidal, others All Other Systems: Reviewed and Negative Physical Exam General Appearance: No Apparent Distress, Normal HEENT: Normal ENT Inspection, PERRL/EOMI Neck: Full Range of Motion, Non-Tender, Normal, Normal Inspection Respiratory: Chest Non-Tender, Lungs Clear, No Accessory Muscle Use, No Respiratory Distress, Normal Breath Sounds Cardiovascular: No Edema, No JVD, No Murmur, No Gallop, Normal Peripheral Pulses, Regular Rate/Rhythm Breast Exam: Deferred Gastrointestinal: No Organomegaly, Non Tender, No Pulsatile Mass, Normal Bowel Sounds, Soft Genitalia: Deferred Pelvic: Deferred Rectal: Deferred Extremities: No calf tenderness, Normal capillary refill, Normal inspection, Normal range of motion, Non-tender, No pedal edema Musculoskeletal : Location: Bilateral Extremity Location: Back Apperance: Tenderness: Moderate (MUSCLE SPASM ON LOW BACK, NO BONY TENDERNESS, SWELLING AND DEFORMITY. ) Neurologic: Alert, juvenile correctional officer II-XII nml as Tested, No Motor Deficits, Normal Affect, Normal Mood, No Sensory Deficits Cerebellar Function: Normal Reflexes: Normal Skin: Dry, Normal Color, Warm Peripheral Pulses: 2+ carotid (R), 2+ carotid (L) Lymphatic: No Adenopathy Was a procedure done? Was a procedure done?: No Back Pain Differential Dx Differential Diagnosis: Musculoskeletal Pain, Other (CHRONIC LOWER BACK PAIN) X-Ray, Labs, Meds, VS Vital Signs Date Time Temp Pulse Resp B/P (MAP) Pulse Ox O2 Delivery O2 Flow Rate FiO2 08/07/24 09:31 99.2 99 16 113/91 (98) 96 99.2 08/07/24 09:31 99 16 96 Room Air 08/07/24 08:31 99.2 99 16 113/91 (98) 96 X-Ray, Labs, Meds, VS Comment - I reviewed the following notes from patient's past medical encounters: 08/03/24 FOR CHRONIC LOW BACK PAIN - The following tests were ordered, and results were reviewed by me: FRANKLIN - Additional information was gathered from interviewing the following independent Historian: FRANKLIN - I reviewed and agreed with the following test results read by other provider: BEULAH Romeo I discussed treatments and results with medical personnel. TREATMENT: TORADOL 60MG IM Time of 1ST Reevaluation: 10:00 Reevaluation 1ST: Improved Patient Education/Counseling: Diagnosis, Treatment, Need For Follow Up Family Education/Counseling: Diagnosis, Treatment, No Family Present Medical Screening: No EMC Exist At This Time Departure 1 Departure Time of Disposition: 10:00 Impression: Primary Impression: DDD (degenerative disc disease), lumbar Qualified Codes: M51.360 - Other intervertebral disc degeneration, lumbar region with discogenic back pain only Additional Impression: Pain management Disposition: HOME / SELF CARE / HOMELESS Condition: Stable Additional Instructions: FOLLOW UP WITH PCP WITHIN 2-3 DAYS. e-Prescriptions Promethazine-Dm (Promethazine Dm 6.25-15 mg/5Ml) 1 Josselin Josselin 5 ML PO TID, #150 ML Prov: SHINE BALBUENA 08/07/24 Baclofen (Baclofen) 10 Mg Tab 10 MG PO BID, #20 TAB Prov: ASHLEY BALBUENAA PA 08/07/24 Ibuprofen (Ibuprofen) 800 Mg Tab 1 TAB PO TID, #30 TAB Prov: SHINE BALBUENA PA 08/07/24 Discharged With: Self Critical Care Note Critical Care Time?: No Stability Stability form required: No Heart Score Heart Score: Heart Score Response (Comments) Value History N/A 0 EKG N/A 0 Age N/A 0 Risk Factors N/A 0 Troponin N/A 0 Total 0 I personally scribed for SHINE BALBUENA ([email or web address]) on 08/07/24 at 09:23. Electronically submitted by Harmeet Moon ([email or web address]). I personally scribed for SHINE BALBUENA ([email or web address]) on 08/07/24 at 09:38. Electronically submitted by Harmeet Moon ([email or web address]). SHINE BALBUENA Aug 07, 2024 09:23
[2024-08-07 09:31] VITALS: BP 113/91; PULSE 99; RESP 16; TEMP 99.2; O2SAT 96
[2024-08-07] MEDS: KETOROLAC TROMETH 60MG/2ML VIAL IM ONE (09:39)
== END 2024-08-07 09:55 | disposition home or self-care (01) ==
LOC: ER 08:23
DX: M51.369 Other intervertebral disc degeneration, lumbar region without mention of lumbar back pain or lower extremity pain (principal); Z79.1 Long term (current) use of non-steroidal anti-inflammatories (NSAID); Z79.52 Long term (current) use of systemic steroids; Z79.899 Other long term (current) drug therapy; Z90.49 Acquired absence of other specified parts of digestive tract
CPT/HCPCS: 96372; 99283; J1885

== ENCOUNTER 2024-08-08 11:12 | Emergency (ER) | payer MEDICAID ==
[~2024-08-08] VITALS: Ht 175.3 cm; Wt 70.0 kg
[~2024-08-08 11:12] MED LIST changes: +BACL10TA PO; +IBUP-1456 PO
--- NOTE | 2024-08-08 12:45 | ED.PDOC ---
Back pain HPI HPI Comments A 48 YEAR OLD MALE PRESENTS TO THE ED WITH CHIEF COMPLAINT OF BACK PAIN. PATIENT REPORTS THAT HE HAS BEEN EXPERIENCING CHRONIC PAIN FOR A MONTH TO HIS LOWER BACK. PATIENT HAD BEEN SEEN YESTERDAY FOR THE SAME COMPLAINT, HOWEVER, HE STATES THE PAIN MEDICATION HE RECEIVED WAS NOT ENOUGH. PATIENT WAS ADMITTED ON 07/15/24 FOR THE SAME COMPLAINT, HAVING AN MRI STUDY WHICH SHOWED DEGENERATIVE CHANGES TO HIS SPINE. PATIENT STATES HE HAS WORKER'S COMP HIS PAIN IS WORK RELATED, BUT IT IS UNKNOWN IF HE HAS FOLLOWED UP WITH THEM. PATIENT DENIES ANY NUMBNESS, WEAKNESS, CHEST PAIN, FALL, OR HEADACHE. PATIENT HAS BEEN SEEN MULTIPLE TIMES IN THE PAST MONTH FOR PAIN MEDICATION. Chief Complaint: Back Pain Time Seen by MD: 12:38 Primary Care Provider: UNKNOWN Reviewed Notes: Nurses Notes, Medications, Allergies Allergies: Coded Allergies: NO KNOWN ALLERGIES (Unverified , 04/08/23) Home Meds Active Scripts Promethazine-Dm (Promethazine Dm 6.25-15 mg/5Ml) 1 Josselin Josselin, 5 ML PO TID, #150 ML Prov:SHINE BALBUENA 08/07/24 Baclofen (Baclofen) 10 Mg Tab, 10 MG PO BID, #20 TAB Prov:SHINE BALBUENA 08/07/24 Ibuprofen (Ibuprofen) 800 Mg Tab, 1 TAB PO TID, #30 TAB Prov:SHINE BALBUENA 08/07/24 Prednisone (Prednisone) 20 Mg Tab, 40 MG PO DAILY for 5 Days, #10 TAB 0 Refills Prov:LUCY FIELD PATTERN DRUM MAKER 08/03/24 Promethazine-Dm (Promethazine Dm 6.25-15 mg/5Ml) 1 Josselin Josselin, 5 ML PO TID for 10 Days, #150 ML 0 Refills Prov:LUCY FIELD PATTERN DRUM MAKER 08/03/24 Methylprednisolone (Medrol Dosepak) 4 Mg Jefry, 4 MG PO UD for 7 Days, #21 TAB UAD Prov:SHERRY CABALLERO MD 07/17/24 Gabapentin (Gabapentin) 300 Mg Cap, 300 MG PO TID for 30 Days, #90 CAP Prov:SHERRY CABALLERO MD 07/17/24 Cyclobenzaprine HCl (Cyclobenzaprine Hydrochlo) 10 Mg Tab, 10 MG PO Q8HPRN PRN for 20 Days, #60 TAB Prov:SHERRY CABALLERO MD 07/17/24 Acetaminophen (Acetaminophen) 325 Mg Tab, 650 MG PO Q8HR for 20 Days, #120 TAB Prov:SHERRY CABALLERO MD 07/17/24 Ibuprofen Micronized (MOTRIN TABLET) 600 Mg Tb, 600 MG PO TID PRN for 10 Days, #30 TAB *Black box warning-NSAIDS can increase risk of [place] & hypertension, GI irritation, ulceration, bleed, perferation. Do not use post cardiac surgery. Use short duration/lowest effective dose. Prov:SHERRY CABALLERO MD 06/16/24 Cyclobenzaprine HCl (Cyclobenzaprine Hydrochlo) 10 Mg Tab, 10 MG PO TIDPRN PRN for 10 Days, #30 TAB Prov:SHERRY CABALLERO MD 06/16/24 Information Source: Patient Mode of Arrival: Ambulatory Timing: Hours Duration: Since onset, Days Location of Back pain: (B) Lumbar Radiates to: Medial: (B) Thigh Severity: Moderate Prehospital treatment: None Quality: Aching Onset: Spontaneous Circumstance: Work Related History of: Chronic Back Pain Associated signs and symptoms: None Past Medical History Past Medical History (Other): CHRONIC LOWER BACK PAIN, DDD OF LOW BACK Surgical History: Appendectomy Family History Family History: Reviewed,noncontributory to illness, Unknown Social History Smoker: Non-Smoker Alcohol: Denies ETOH Use Drugs: Denies Drug Use Lives In: Home Constitutional: denies: chills, diaphoresis, fatigue, fever, malaise, sweats, weakness, others EENTM: denies: blurred vision, double vision, ear bleeding, ear discharge, ear drainage, ear pain, ear ringing, eye pain, eye redness, hearing loss, mouth pain, mouth swelling, nasal discharge, nose bleeding, nose congestion, nose pain, photophobia, tearing, throat pain, throat swelling, voice changes, others Respiratory: denies: cough, hemoptysis, orthopnea, SOB at rest, shortness of breath, SOB with excertion, stridor, wheezing, others Cardiovascular: denies: chest pain, dizzy spells, diaphoresis, Dyspnea on exertion, edema, irregular heart beat, left arm pain, lightheadedness, palpitations, PND, syncope, others Gastrointestinal: denies: abdomen distended, abdominal pain, blood streaked bowels, constipated, diarrhea, dysphagia, difficulty swallowing, hematemesis, melena, nausea, poor appetite, poor fluid intake, rectal bleeding, rectal pain, vomiting, others Genitourinary: denies: burning, dysuria, flank pain, frequency, hematuria, incontinence, penile discharge, penile sore, pain, testicle pain, testicle swelling, urgency, others Neurological: denies: dizziness, fainting, headache, left sided numbness, left sided weakness, numbness, paresthesia, pre-existing deficit, right sided numbness, right sided weakness, seizure, speech problems, tingling, tremors, weakness, others Musculoskeletal: reports: back pain, muscle pain; denies: gout, joint pain, joint swelling, muscle stiffness, neck pain, others Integumetry: denies: bruises, change in color, change in hair/nails, dryness, laceration, lesions, lumps, rash, wounds, others Allergic/Immunocompromised: denies: Difficulty Healing, Frequent Infections, Hives, Itching, others Hematologic/Lymphatic: denies: anemia, blood clots, easy bleeding, easy bruising, swollen glands, others Endocrine: denies: excessive hunger, excessive sweating, excessive thirst, excessive urination, flushing, intolerance to cold, intolerance to heat, unexplained weight gain, unexplained weight loss, others Psychiatric: denies: anxiety, bipolar disorder, depression, hopeless, panic disorder, schizophrenia, sleepless, suicidal, others All Other Systems: Reviewed and Negative Physical Exam General Appearance: No Apparent Distress, Normal HEENT: Normal ENT Inspection, PERRL/EOMI, Pharynx Normal Neck: Full Range of Motion, Non-Tender, Normal, Normal Inspection Respiratory: Chest Non-Tender, Lungs Clear, No Accessory Muscle Use, No Respiratory Distress, Normal Breath Sounds Cardiovascular: No Edema, No JVD, No Murmur, No Gallop, Normal Peripheral Pulses, Regular Rate/Rhythm Breast Exam: Deferred Gastrointestinal: No Organomegaly, Non Tender, No Pulsatile Mass, Normal Bowel Sounds, Soft Genitalia: Deferred Pelvic: Deferred Rectal: Deferred Extremities: No calf tenderness, Normal capillary refill, Normal inspection, Normal range of motion, Non-tender, No pedal edema Musculoskeletal : Location: Bilateral Extremity Location: Back Apperance: Tenderness: Moderate (MUSCLE SPASM ON LOW BACK, NO BONY TENDERNESS, SWELLING AND SWELLING, NO DEFORMITY. ) Neurologic: Alert, food checker II-XII nml as Tested, No Motor Deficits, Normal Affect, Normal Mood, No Sensory Deficits Cerebellar Function: Normal Reflexes: Normal Skin: Dry, Normal Color, Warm Peripheral Pulses: 2+ carotid (R), 2+ carotid (L) Lymphatic: No Adenopathy Was a procedure done? Was a procedure done?: No Back Pain Differential Dx Differential Diagnosis: Musculoskeletal Pain, Other (CHRONIC LOW BACK PAIN EXACERBATION, DDD OF LOW BACK ) X-Ray, Labs, Meds, VS Vital Signs Date Time Temp Pulse Resp B/P (MAP) Pulse Ox O2 Delivery O2 Flow Rate FiO2 08/08/24 12:55 82 18 120/78 08/08/24 11:30 97.7 88 19 124/79 (94) 95 Current Medications Medications (Trade) Dose Ordered Sig/Christofer Route Start Time Stop Time Status Last Admin Meperidine HCl (Demerol Injection) 50 mg ONCE ONCE IM 08/08/24 12:45 08/08/24 12:46 DC 08/08/24 12:55 Ondansetron HCl (Zofran Po) 4 mg ONCE ONCE PO 08/08/24 12:45 08/08/24 12:46 DC 08/08/24 12:55 X-Ray, Labs, Meds, VS Comment EXTERNAL MEDICAL RECORDS REVIEWED: 08/07/24 FOR CHRONIC LOWER BACK PAIN AND DDD. INDEPENDENT HISTORIANS: [NONE] SOCIAL DETERMINANTS OF HEALTH: [NONE] LABS ORDERED: NONE REVIEWED AND INTERPRETED RESULTS: NONE IMAGING ORDERED: NONE TREATMENTS ORDERED: DEMEROL 50MG IM AND ZOFRAN 4MG PO PROCEDURES PERFORMED: NONE CRITICAL CARE TIME: NONE OLD CHART REVIEWED. PATIENT ADVISED TO FOLLOW UP WITH WORKER'S COMP FOR FURTHER PAIN MANAGEMENT. GIVEN THE HISTORY AND PRESENT ILLNESS OF THE PATIENT, AFTER REVIEWING LABS, IMAGING, AND COURSE OF TREATMENT ADMINISTERED DURING THEIR ED VISIT, THERE IS LOW SUSPICION FOR RED FLAG FINDINGS. BASED ON HISTORY OF PRESENT ILLNESS, AND PHYSICAL EXAM, PATIENT WILL BE DISCHARGED HOME. DISCUSSED PLAN FOR DISCHARGE HOME. SHARED DECISION MAKING: DISCUSSED WITH PATIENT THAT THEIR WORKUP WAS NORMAL. PATIENT INSTRUCTED TO FOLLOW UP WITH PRIMARY CARE PROVIDER IN 1-2 DAYS FOR RE- EVALUATION OF SYMPTOMS. PATIENT VERBALIZES UNDERSTANDING TO RETURN TO ED FOR NEW OR WORSENING SYMPTOMS OR IF FOLLOW UP WITH PCP CANNOT BE OBTAINED. PATIENT FEELS COMFORTABLE GOING HOME AT THIS TIME. ALL QUESTIONS ADDRESSED AT TIME OF DISCHARGE. Time of 1ST Reevaluation: 13:00 Reevaluation 1ST: Improved Patient Education/Counseling: Diagnosis, Treatment, Need For Follow Up Family Education/Counseling: Diagnosis, Treatment, Need For Follow Up Medical Screening: No EMC Exist At This Time Departure 1 Departure Time of Disposition: 13:20 Impression: Primary Impression: DDD (degenerative disc disease), lumbar Qualified Codes: M51.362 - Other intervertebral disc degeneration, lumbar region with discogenic back pain and lower extremity pain Additional Impression: Pain management Disposition: HOME / SELF CARE / HOMELESS Condition: Stable Additional Instructions: FOLLOW-UP WORKMAN IN 2 DAYS. TAKE MEDICATIONS PRESCRIBED. RETURN TO ED FOR ANY NEW OR WORSENING SYMPTOMS. Discharged With: Self, Spouse Critical Care Note Critical Care Time?: No Stability Stability form required: No Heart Score Heart Score: Heart Score Response (Comments) Value History N/A 0 EKG N/A 0 Age N/A 0 Risk Factors N/A 0 Troponin N/A 0 Total 0 I personally scribed for SHINE BALBUENA ([email or web address]) on 08/08/24 at 12:45. Elect ronically submitted by Harmeet Moon ([email or web address]). I personally scribed for SHINE BALBUENA ([email or web address]) on 08/08/24 at 13:02. Electron ically submitted by Harmeet Moon ([email or web address]). SHINE BALBUENA Aug 08, 2024 12:45
[2024-08-08 12:50] VITALS: TEMP 98.1; O2SAT 96
[2024-08-08 12:55] VITALS: BP 120/78; PULSE 82; RESP 18
[2024-08-08] MEDS: MEPERIDINE HCL (50 MG/ML) 1 ML VIAL IM ONE (12:55)
[2024-08-08] MEDS: ONDANSETRON ODT 4 MG TAB PO ONE (12:55)
== END 2024-08-08 13:24 | disposition home or self-care (01) ==
LOC: ER 11:12
DX: M51.369 Other intervertebral disc degeneration, lumbar region without mention of lumbar back pain or lower extremity pain (principal); Z79.899 Other long term (current) drug therapy; Z90.49 Acquired absence of other specified parts of digestive tract
CPT/HCPCS: 96372; 99283; J2175; Q0162